=== PATIENT | female | born 1955 | race Caucasian/White ===

== ENCOUNTER 2021-01-08 10:12 | Inpatient (IN) ==
[2021-01-08] MEDS ORDERED: Ondansetron 4 MG/2 ML VIAL IVP PRN (14:10)
[2021-01-08] MEDS ORDERED: Naloxone 0.4 MG/ML INJ IVP PRN (14:10)
[2021-01-08] MEDS ORDERED: Dextrose Gel 15 GM/37.5 ML TUBE PO PRN ×2 (14:17)
[2021-01-08] MEDS ORDERED: D5% in Water 1,000 ML IVC PRN (14:17)
[2021-01-08] MEDS ORDERED: *HR* Dextrose 50 % in Water (Vial) 50 ML VIAL IVP PRN (14:17)
[2021-01-08] MEDS: Insulin LISPRO 300 UNITS/3 ML VIAL SUBQ SCH (15:40)
[2021-01-08 17:47] LABS: LDH,Pleural Fluid > 1200 Units/L (No Ref Range)
[2021-01-08 19:35] LABS: Appearance of Pleural Fl Bloody (Clear)
[2021-01-08 20:58] LABS: Basophils,Pleural Fluid 0 %; Eosinophils,Pleural Fluid 0 %; Lymphocytes,Pleural Fluid 0 %; Monocytes,Pleural Fluid 0 %
[2021-01-08] MEDS ORDERED: Insulin DETEMIR 100 UNIT/ML X5UNITS SUBQ SCH (21:00)
[2021-01-09 02:48] LABS: Hematocrit 32.8 % (35.3-44.9); Hemoglobin 10.3 g/dL (11.5-15.4); Immature Platelets 1.2 % (1.1-6.1); Mean Corpuscular HGB Conc 31.4 g/dL (31.6-35.5); Mean Corpuscular Hemoglobin 28.1 pg (28.0-33.3); Mean Corpuscular Volume 89.6 fL (83.0-100.0); Red Blood Count 3.66 M/mcL (3.82-4.97); Red Cell Distribution Width 14.5 % (11.5-14.5); White Blood Count 2.2 K/mcL (4.3-11.1)
[2021-01-09 03:09] LABS: BUN/Creatinine Ratio 27 (6-26); Blood Urea Nitrogen 21 mg/dL (8-23); Carbon Dioxide 24 mEq/L (23-29); Chloride 105 mEq/L (98-107); Glucose 191 mg/dL (70-105); Osmolality,Calculated 294 (280-300); Potassium 4.2 mEq/L (3.5-5.1); Sodium 138 mEq/L (136-145); eGFR For African Americans > 60 (> 60); eGFR For Non-African Americans > 60 (> 60)
[2021-01-09 07:46] VITALS: BP 152/63
[2021-01-09] MEDS: Insulin LISPRO 300 UNITS/3 ML VIAL SUBQ SCH (08:41)
== END 2021-01-09 11:19 | disposition home or self-care (01) | DRG 187 ==
LOC: SAMDAY 10:12 → 2ANU 10:12 → SUATTDRO 17:37
PROVIDERS: ADMIT Internal Medicine; ATTEND Internal Medicine

== ENCOUNTER 2022-06-09 00:40 | Inpatient (IN) ==
[2022-06-09] MEDS ORDERED: Iopamidol - 370 500 ML MLS IVP ONE (01:49)
[2022-06-09] MEDS ORDERED: 0.9 % Sodium Chloride 1,000 ML IV ONE (01:58)
[2022-06-09] MEDS ORDERED: Acetaminophen 325 MG TABLET PO ONE (02:05)
[2022-06-09 02:50] LABS: Basophils % 0.1 %; Eosinophils % 0.1 %; Mean Corpuscular Volume 87.7 fL (83.0-100.0); Red Cell Distribution Width 14.3 % (11.5-14.5)
[2022-06-09 02:51] LABS: Amorphous Sediment,Urine Moderate per hpf (None-Few); Bacteria,Urine Few per hpf (None-Few); Bilirubin,Urine Negative (Negative); Blood,Urine Small (Negative); Clarity,Urine Turbid (Clear); Color,Urine Yellow (Yellow); Glucose,Urine (UA) Normal (Normal); Hematocrit 27.8 % (35.3-44.9); Hemoglobin 9.2 g/dL (11.5-15.4); Immature Granulocytes % 2.3 % (0-4); Immature Platelets 11.2 % (1.1-6.1); Ketones,Urine Negative (Negative); Leukocyte Esterase,Urine Negative (Negative); Lymphocytes # 0.9 K/mcL (0.6-4.6); Lymphocytes % 10.5 %; Mean Corpuscular HGB Conc 33.1 g/dL (31.6-35.5); Mean Platelet Volume 12.5 fL (9.4-12.4); Monocytes # 0.9 K/mcL (0.0-1.3); Monocytes % 10.9 %; Mucus,Urine Few per lpf (None-Few); Neutrophils # 6.5 K/mcL (1.6-8.9); Nitrite,Urine Negative (Negative); Nucleated Red Blood Cells 0.2 /100 WBC (0); PH,Urine 5.5 pH Units (5.0-8.0); Protein,Urine 70 mg/dL (Neg-Trace); RBC,Urine 0-3 per hpf (0-3); Red Blood Count 3.17 M/mcL (3.82-4.97); Segmented Neutrophils % 76.1 %; Specific Gravity,Urine 1.014 (1.010-1.025); Squamous Epithelial Cell,Urine Few per hpf (None-Few); WBC,Urine 0-3 per hpf (0-3); White Blood Count 8.6 K/mcL (4.3-11.1)
[2022-06-09 03:07] LABS: Platelet Count 64 K/mcL (140-400)
[2022-06-09 03:10] LABS: Alanine Aminotransferase 18 Units/L (7-52); Albumin/Globulin Ratio 0.9 (1.1-2.2); Alkaline Phosphatase 101 Units/L (34-104); Aspartate Amino Transferase 13 Units/L (13-39); BUN/Creatinine Ratio 21 (6-26); Bilirubin,Indirect 0.9 mg/dL (0.0-1.0); Bilirubin,Total 1.9 mg/dL (0.3-1.0); Blood Urea Nitrogen 36 mg/dL (8-23); Calcium 9.5 mg/dL (8.6-10.3); Carbon Dioxide 23 mEq/L (23-29); Chloride 93 mEq/L (98-107); Globulin 3.4 g/dL (2.4-3.5); Glucose 276 mg/dL (70-105); Osmolality,Calculated 278 (280-300); Potassium 4.3 mEq/L (3.5-5.1); Sodium 125 mEq/L (136-145); Total Protein 6.4 g/dL (6.4-8.9); Troponin I < 0.03 ng/mL (< 0.04); eGFR For African Americans 35 (> 60); eGFR For Non-African Americans 29 (> 60)
[2022-06-09] MEDS ORDERED: cephALEXin 500 MG CAPSULE PO ONE (05:08)
[2022-06-09] MEDS ORDERED: Naloxone 0.4 MG/ML INJ IVP PRN (05:17)
[2022-06-09] MEDS ORDERED: Ondansetron 4 MG/2 ML VIAL IVP PRN (05:17)
[2022-06-09] MEDS ORDERED: 0.9 % Sodium Chloride 1,000 ML IVC SCH ×2 (05:30→06:45)
[2022-06-09] MEDS ORDERED: Vancomycin 1,500 MG/265 ML IV.SOLN IVPB ONE (06:00)
[2022-06-09] MEDS ORDERED: *HR* Heparin 5,000 UNIT/ML VIAL SQ SCH (06:00)
[2022-06-09 06:40] LABS: Adenovirus Not Detected (Not Detect); Coronavirus 229E Not Detected (Not Detect); Coronavirus HKU1 Not Detected (Not Detect); Coronavirus NL63 Not Detected (Not Detect); Coronavirus OC43 Not Detected (Not Detect)
[2022-06-09 06:41] LABS: Bordetella Pertussis Not Detected (Not Detect); Chlamydophila pneumoniae Not Detected (Not Detect); Human Metapneumovirus Not Detected (Not Detect); Human Rhinovirus/Enterovirus Not Detected (Not Detect); Influenza A Subtype 2009 H1 Not Detected (Not Detect); Influenza B Not Detected (Not Detect); Mycoplasma pneumoniae Not Detected (Not Detect); Parainfluenza Virus 1 Not Detected (Not Detect); Parainfluenza Virus 2 Not Detected (Not Detect); Parainfluenza Virus 3 Not Detected (Not Detect); Parainfluenza Virus 4 Not Detected (Not Detect); Respiratory Syncytial Virus Not Detected (Not Detect); SARS-CoV-2 DETECTED (Not Detect)
[2022-06-09] MEDS: Piperacillin/Tazobactam 3.375 GM in 0.9 % Sodium Chloride Mini Bag 100 ML IVPB SCH ×2 (07:58→17:16)
[2022-06-09 09:11] LABS: Calcium 9.3 mg/dL (8.6-10.3)
[2022-06-09] MEDS ORDERED: Dextrose Gel 15 GM/37.5 ML TUBE PO PRN ×2 (12:02)
[2022-06-09] MEDS ORDERED: *HR* Dextrose 50 % in Water (Syg) 50 ML SYRINGE IVP PRN (12:02)
[2022-06-09] MEDS ORDERED: D5% in Water 1,000 ML IVC PRN (12:02)
[2022-06-09] MEDS ORDERED: Lactulose Oral Soln 20 GM/30 ML UDC PO SCH (12:15)
[2022-06-09] MEDS: Insulin LISPRO 300 UNITS/3 ML VIAL SUBQ SCH ×2 (12:25→17:16)
[2022-06-09] MEDS: 0.9 % Sodium Chloride 1,000 ML IVC SCH (17:22)
[2022-06-09] MEDS: Acetaminophen 325 MG TABLET PO PRN (17:23)
[2022-06-09] MEDS: Lactulose Oral Soln 20 GM/30 ML UDC PO SCH (21:57)
[2022-06-10] MEDS: Piperacillin/Tazobactam 3.375 GM in 0.9 % Sodium Chloride Mini Bag 100 ML IVPB SCH ×3 (00:16→16:15)
[2022-06-10] MEDS: 0.9 % Sodium Chloride 1,000 ML IVC SCH (04:00)
[2022-06-10] MEDS ORDERED: Vancomycin 1,250 MG/262.5 ML IV.SOLN IVPB SCH (06:00)
[2022-06-10 06:13] LABS: Red Blood Count 2.99 M/mcL (3.82-4.97); Red Cell Distribution Width 14.6 % (11.5-14.5)
[2022-06-10 06:15] LABS: Hematocrit 26.1 % (35.3-44.9); Hemoglobin 8.4 g/dL (11.5-15.4); Immature Platelets 8.2 % (1.1-6.1); Mean Corpuscular HGB Conc 32.2 g/dL (31.6-35.5); Mean Corpuscular Hemoglobin 28.1 pg (28.0-33.3); Mean Corpuscular Volume 87.3 fL (83.0-100.0); Mean Platelet Volume 12.1 fL (9.4-12.4); White Blood Count 8.2 K/mcL (4.3-11.1)
[2022-06-10 07:35] LABS: Calcium 9.1 mg/dL (8.6-10.3); Magnesium 1.5 mg/dL (1.6-2.6); Phosphorous 2.7 mg/dL (2.7-4.5); Potassium 4.1 mEq/L (3.5-5.1)
[2022-06-10] MEDS: Insulin LISPRO 300 UNITS/3 ML VIAL SUBQ SCH ×3 (08:01→17:25)
[2022-06-10] MEDS ORDERED: 0.9 % Sodium Chloride 1,000 ML IVC ONE (08:03)
[2022-06-10] MEDS: Lactulose Oral Soln 20 GM/30 ML UDC PO SCH ×2 (08:04→20:56)
[2022-06-10] MEDS: Torsemide 20 MG TABLET PO SCH (16:16)
[2022-06-10] MEDS: Insulin DETEMIR 100 UNIT/ML X5UNITS SUBQ SCH (21:45)
[2022-06-11] MEDS: Piperacillin/Tazobactam 3.375 GM in 0.9 % Sodium Chloride Mini Bag 100 ML IVPB SCH ×3 (01:03→17:26)
[2022-06-11 06:10] LABS: Hemoglobin 8.1 g/dL (11.5-15.4); Red Cell Distribution Width 14.7 % (11.5-14.5)
[2022-06-11 06:12] LABS: Hematocrit 25.6 % (35.3-44.9); Immature Platelets 5.9 % (1.1-6.1); Mean Corpuscular HGB Conc 31.6 g/dL (31.6-35.5); Mean Corpuscular Hemoglobin 28.1 pg (28.0-33.3); Mean Corpuscular Volume 88.9 fL (83.0-100.0); Mean Platelet Volume 11.9 fL (9.4-12.4); Red Blood Count 2.88 M/mcL (3.82-4.97)
[2022-06-11 06:17] LABS: Calcium 9.2 mg/dL (8.6-10.3); Potassium 3.9 mEq/L (3.5-5.1)
[2022-06-11] MEDS: Torsemide 20 MG TABLET PO SCH ×2 (08:40→17:24)
[2022-06-11] MEDS: Lactulose Oral Soln 20 GM/30 ML UDC PO SCH ×2 (08:41→20:12)
[2022-06-11] MEDS: Insulin LISPRO 300 UNITS/3 ML VIAL SUBQ SCH ×3 (08:41→17:25)
[2022-06-11] MEDS: Insulin DETEMIR 100 UNIT/ML X5UNITS SUBQ SCH ×2 (09:08→20:12)
[2022-06-12] MEDS: Piperacillin/Tazobactam 3.375 GM in 0.9 % Sodium Chloride Mini Bag 100 ML IVPB SCH ×3 (00:22→17:27)
[2022-06-12] MEDS: Acetaminophen 325 MG TABLET PO PRN (04:29)
[2022-06-12] MEDS: Insulin DETEMIR 100 UNIT/ML X5UNITS SUBQ SCH ×2 (08:58→21:48)
[2022-06-12] MEDS: Torsemide 20 MG TABLET PO SCH ×2 (08:58→17:26)
[2022-06-12] MEDS: Lactulose Oral Soln 20 GM/30 ML UDC PO SCH ×2 (08:58→21:48)
[2022-06-12] MEDS: Insulin LISPRO 300 UNITS/3 ML VIAL SUBQ SCH ×3 (08:59→17:26)
[2022-06-12 12:01] LABS: Calcium 9.4 mg/dL (8.6-10.3); Potassium 3.8 mEq/L (3.5-5.1)
[2022-06-13] MEDS: Piperacillin/Tazobactam 3.375 GM in 0.9 % Sodium Chloride Mini Bag 100 ML IVPB SCH ×2 (00:47→08:15)
[2022-06-13 07:07] VITALS: TEMP 97.6
[2022-06-13] MEDS: Insulin LISPRO 300 UNITS/3 ML VIAL SUBQ SCH (08:17)
[2022-06-13] MEDS: Torsemide 20 MG TABLET PO SCH (08:17)
[2022-06-13] MEDS: Lactulose Oral Soln 20 GM/30 ML UDC PO SCH (08:17)
[2022-06-13] MEDS: Insulin DETEMIR 100 UNIT/ML X5UNITS SUBQ SCH (08:17)
[2022-06-13 10:40] VITALS: BP 144/70; PULSE 59; O2SAT 94
== END 2022-06-13 11:40 | disposition other institution (70) | DRG 871 ==
LOC: EMEROOARM 00:40 → 3ANU 00:40 → SUATTDRO 05:26 → 3ANU 06:10
PROVIDERS: ADMIT Student in an Organized Health Care Education/Training Program; ATTEND Internal Medicine

== ENCOUNTER 2022-06-19 16:57 | Inpatient (IN) ==
[2022-06-19] MEDS ORDERED: Ondansetron ODT 4 MG TAB.RAPDIS SL PRN (21:41)
[2022-06-19] MEDS ORDERED: Naloxone 0.4 MG/ML INJ IVP PRN (21:41)
[2022-06-19] MEDS ORDERED: D5% in Water 1,000 ML IVC PRN (21:45)
[2022-06-19] MEDS ORDERED: Dextrose Gel 15 GM/37.5 ML TUBE PO PRN ×2 (21:45)
[2022-06-19] MEDS ORDERED: *HR* Dextrose 50 % in Water (Syg) 50 ML SYRINGE IVP PRN (21:45)
[2022-06-19] MEDS: Insulin LISPRO 300 UNITS/3 ML VIAL SUBQ SCH (22:55)
[2022-06-19] MEDS: Ampicillin 2,000 MG in 0.9 % Sodium Chloride Mini Bag 100 ML IVPB SCH (23:48)
[2022-06-20 01:06] LABS: Bilirubin,Urine Negative (Negative); Blood,Urine Large (Negative); Budding Yeast,Urine Few per hpf (None Seen); Clarity,Urine Clear (Clear); Color,Urine Light-Yellow (Yellow); Glucose,Urine (UA) 70 mg/dL (Normal); Hyaline Casts,Urine Few per lpf (None Seen); Ketones,Urine Negative (Negative); Leukocyte Esterase,Urine Negative (Negative); Mucus,Urine Few per lpf (None-Few); Nitrite,Urine Negative (Negative); PH,Urine 6.5 pH Units (5.0-8.0); Protein,Urine 50 mg/dL (Neg-Trace); RBC,Urine TNTC per hpf (0-3); Specific Gravity,Urine 1.009 (1.010-1.025); Urobilinogen,Urine Normal (Normal)
[2022-06-20 04:53] LABS: INR 1.4; Prothrombin Time 16.1 Seconds (9.4-12.1)
[2022-06-20 05:06] LABS: Hemoglobin 7.5 g/dL (11.5-15.4); Lymphocytes % 9.3 %; Monocytes % 1.5 %; Segmented Neutrophils % 87.7 %
[2022-06-20 05:08] LABS: Basophils % 0.2 %; Immature Granulocytes % 1.3 % (0-4); Immature Platelets 14.1 % (1.1-6.1); Lymphocytes # 0.5 K/mcL (0.6-4.6); Mean Corpuscular HGB Conc 31.3 g/dL (31.6-35.5); Mean Corpuscular Hemoglobin 28.2 pg (28.0-33.3); Mean Corpuscular Volume 90.2 fL (83.0-100.0); Monocytes # 0.1 K/mcL (0.0-1.3); Red Blood Count 2.66 M/mcL (3.82-4.97); Red Cell Distribution Width 16.5 % (11.5-14.5); White Blood Count 5.3 K/mcL (4.3-11.1)
[2022-06-20 05:12] LABS: Neutrophils # 4.7 K/mcL (1.6-8.9)
[2022-06-20 05:13] LABS: Platelet Count 12 K/mcL (140-400)
[2022-06-20] MEDS: Ampicillin 2,000 MG in 0.9 % Sodium Chloride Mini Bag 100 ML IVPB SCH (05:36)
[2022-06-20 06:04] LABS: Potassium 4.2 mEq/L (3.5-5.1)
[2022-06-20 06:33] LABS: Albumin 2.5 g/dL (3.5-5.7); Albumin/Globulin Ratio 0.6 (1.1-2.2); Bilirubin,Total 1.2 mg/dL (0.3-1.0); Calcium 9.8 mg/dL (8.6-10.3); Globulin 4.1 g/dL (2.4-3.5); Total Protein 6.6 g/dL (6.4-8.9)
[2022-06-20] MEDS ORDERED: Insulin LISPRO 300 UNITS/3 ML VIAL SUBQ SCH (07:30)
[2022-06-20] MEDS: Dexamethasone Sodium Phos/PF 10 MG/ML VIAL IVP SCH (09:31)
[2022-06-20] MEDS: niCARdipine 20 MG/200 ML MLS IVC SCH ×5 (09:31→20:03)
[2022-06-20] MEDS ORDERED: levoFLOXacin 750 MG/150 ML 750 MG/150 ML BAG IVPB SCH (10:00)
[2022-06-20 10:55] LABS: % Iron Saturation 15 % (15-50); Iron 60 mcg/dL (50-170); Transferrin 282 mg/dL (203-362)
[2022-06-20] MEDS ORDERED: Fluticasone Propionate Nasal 50 MCG/SPRAY BOTTLE NS PRN (10:56)
[2022-06-20] MEDS ORDERED: Furosemide 40 MG/4 ML VIAL IVP ONE ×2 (10:56)
[2022-06-20 11:13] LABS: Ferritin 73 ng/mL (10-120)
[2022-06-20] MEDS ORDERED: amLODIPine 5 MG TABLET PO SCH (11:30)
[2022-06-20] MEDS ORDERED: *HR* Midazolam HCl 2 MG/2 ML VIAL IVP ONE (11:45)
[2022-06-20] MEDS ORDERED: *HR* FentaNYL (PF) 100 MCG/2 ML VIAL IVP ONE (11:45)
[2022-06-20 11:56] LABS: Folate > 22.3 ng/mL (3.0-16.0); Vitamin B12 1390 pg/mL (250-1100)
[2022-06-20] MEDS: Insulin LISPRO 300 UNITS/3 ML VIAL SUBQ SCH ×3 (13:03→20:29)
[2022-06-20 13:59] LABS: Hepatitis B Surface Antigen Nonreactive (Nonreactive)
[2022-06-20 14:29] LABS: Hepatitis B Core IgM Nonreactive (Nonreactive)
[2022-06-20 14:31] LABS: Hepatitis C Virus Antibody Nonreactive (Nonreactive)
[2022-06-20 14:34] LABS: Hepatitis A Antibody IgM Nonreactive (Nonreactive)
[2022-06-20 14:35] LABS: HIV-1&2 Antibody & p24 Ag Nonreactive (Nonreactive)
[2022-06-20] MEDS: *HR* LORazepam 2 MG/ML VIAL IVP PRN (15:23)
[2022-06-20] MEDS: Insulin DETEMIR 100 UNIT/ML X5UNITS SUBQ SCH (20:29)
[2022-06-21] MEDS: niCARdipine 20 MG/200 ML MLS IVC SCH ×11 (00:27→22:38)
[2022-06-21 05:35] LABS: Basophils % 0.1 %
[2022-06-21 05:36] LABS: Hematocrit 25.5 % (35.3-44.9); Hemoglobin 7.7 g/dL (11.5-15.4); Lymphocytes # 0.8 K/mcL (0.6-4.6); Lymphocytes % 6.2 %; Mean Corpuscular HGB Conc 30.2 g/dL (31.6-35.5); Mean Corpuscular Volume 92.7 fL (83.0-100.0); Monocytes # 0.3 K/mcL (0.0-1.3); Monocytes % 2.3 %; Red Blood Count 2.75 M/mcL (3.82-4.97); Red Cell Distribution Width 17.2 % (11.5-14.5); Segmented Neutrophils % 90.4 %; White Blood Count 13.3 K/mcL (4.3-11.1)
[2022-06-21 05:37] LABS: Platelet Count 70 K/mcL (140-400)
[2022-06-21 05:55] LABS: Potassium 4.6 mEq/L (3.5-5.1)
[2022-06-21] MEDS: Insulin DETEMIR 100 UNIT/ML X5UNITS SUBQ SCH ×2 (07:45→20:05)
[2022-06-21] MEDS: Insulin LISPRO 300 UNITS/3 ML VIAL SUBQ SCH ×4 (07:45→20:02)
[2022-06-21] MEDS: Furosemide 40 MG/4 ML VIAL IVP SCH (07:46)
[2022-06-21] MEDS: Lactulose Oral Soln 20 GM/30 ML UDC PO SCH (07:46)
[2022-06-21] MEDS: Dexamethasone Sodium Phos/PF 10 MG/ML VIAL IVP SCH (07:46)
[2022-06-21] MEDS: amLODIPine 5 MG TABLET PO SCH (07:47)
[2022-06-21] MEDS ORDERED: Acetaminophen 325 MG TABLET PO ONE (09:58)
[2022-06-21] MEDS ORDERED: Albumin 25% 25gram/100mL 25 GM/100 ML IV.SOLN IVPB ONE (12:10)
[2022-06-21] MEDS ORDERED: Furosemide 40 MG/4 ML VIAL IVP ONE (12:11)
[2022-06-21] MEDS: Ipratropium/Albuterol Neb 3 ML IH SCH ×2 (15:49→20:21)
[2022-06-21] MEDS: Piperacillin/Tazobactam 3.375 GM in 0.9 % Sodium Chloride Mini Bag 100 ML IVPB SCH (16:32)
[2022-06-22] MEDS: niCARdipine 20 MG/200 ML MLS IVC SCH ×5 (00:34→18:15)
[2022-06-22] MEDS: Piperacillin/Tazobactam 3.375 GM in 0.9 % Sodium Chloride Mini Bag 100 ML IVPB SCH ×3 (00:35→16:37)
[2022-06-22] MEDS: Ipratropium/Albuterol Neb 3 ML IH SCH ×4 (04:03→22:00)
[2022-06-22 04:55] LABS: Basophils % 0.1 %; Monocytes % 2.4 %
[2022-06-22 04:57] LABS: Hematocrit 24.4 % (35.3-44.9); Hemoglobin 7.3 g/dL (11.5-15.4); Immature Granulocytes % 0.9 % (0-4); Lymphocytes # 0.9 K/mcL (0.6-4.6); Lymphocytes % 7.5 %; Mean Corpuscular HGB Conc 29.9 g/dL (31.6-35.5); Mean Corpuscular Volume 93.5 fL (83.0-100.0); Mean Platelet Volume 11.9 fL (9.4-12.4); Monocytes # 0.3 K/mcL (0.0-1.3); Neutrophils # 10.2 K/mcL (1.6-8.9); Platelet Count 50 K/mcL (140-400); Red Blood Count 2.61 M/mcL (3.82-4.97); Red Cell Distribution Width 17.8 % (11.5-14.5); Segmented Neutrophils % 89.1 %; White Blood Count 11.4 K/mcL (4.3-11.1)
[2022-06-22 05:15] LABS: Albumin/Globulin Ratio 0.7 (1.1-2.2); Bilirubin,Total 1.2 mg/dL (0.3-1.0); Calcium 9.8 mg/dL (8.6-10.3); Globulin 4.1 g/dL (2.4-3.5); Potassium 4.8 mEq/L (3.5-5.1); Total Protein 7.1 g/dL (6.4-8.9)
[2022-06-22] MEDS: amLODIPine 5 MG TABLET PO SCH (09:13)
[2022-06-22] MEDS: Dexamethasone Sodium Phos/PF 10 MG/ML VIAL IVP SCH (09:14)
[2022-06-22] MEDS: Furosemide 40 MG/4 ML VIAL IVP SCH (09:14)
[2022-06-22] MEDS: Insulin DETEMIR 100 UNIT/ML X5UNITS SUBQ SCH ×2 (09:15→20:39)
[2022-06-22] MEDS: Insulin LISPRO 300 UNITS/3 ML VIAL SUBQ SCH ×4 (09:16→20:39)
[2022-06-22] MEDS: Lactulose Oral Soln 20 GM/30 ML UDC PO SCH (09:17)
[2022-06-22 10:25] LABS: ANA IgG by ELISA NONE DETECTED (None Detected)
[2022-06-22 12:31] LABS: Protein/Creatinine Ratio,Urine 1.14 mg/mg (0.00-0.20); Sodium, Urine 32.3 mEq/L
[2022-06-22] MEDS: Albumin 25% 25gram/100mL 25 GM/100 ML IV.SOLN IVPB SCH (16:37)
[2022-06-22] MEDS: hydrALAZINE 25 MG TABLET PO SCH (17:47)
[2022-06-22] MEDS: *HR* LORazepam 2 MG/ML VIAL IVP PRN (23:01)
[2022-06-22 23:24] LABS: % Iron Saturation 12 % (15-50); Iron 46 mcg/dL (50-170); Transferrin 272 mg/dL (203-362)
[2022-06-22 23:43] LABS: Ferritin 66 ng/mL (10-120)
[2022-06-23] MEDS: Albumin 25% 25gram/100mL 25 GM/100 ML IV.SOLN IVPB SCH ×2 (00:17→07:43)
[2022-06-23] MEDS: Piperacillin/Tazobactam 3.375 GM in 0.9 % Sodium Chloride Mini Bag 100 ML IVPB SCH ×4 (00:17→18:57)
[2022-06-23] MEDS: hydrALAZINE 25 MG TABLET PO SCH ×2 (00:17→09:11)
[2022-06-23] MEDS: niCARdipine 20 MG/200 ML MLS IVC SCH (03:02)
[2022-06-23] MEDS: Ipratropium/Albuterol Neb 3 ML IH SCH ×2 (04:00→10:21)
[2022-06-23 04:53] LABS: Basophils % 0.1 %; Hemoglobin 7.8 g/dL (11.5-15.4); Mean Platelet Volume 12.9 fL (9.4-12.4)
[2022-06-23 04:56] LABS: Immature Granulocytes % 1.3 % (0-4); Immature Platelets 12.9 % (1.1-6.1); Lymphocytes # 0.9 K/mcL (0.6-4.6); Lymphocytes % 5.7 %; Mean Corpuscular Hemoglobin 27.9 pg (28.0-33.3); Mean Corpuscular Volume 92.9 fL (83.0-100.0); Monocytes # 0.4 K/mcL (0.0-1.3); Monocytes % 2.6 %; Red Cell Distribution Width 17.8 % (11.5-14.5); Segmented Neutrophils % 90.3 %; White Blood Count 15.2 K/mcL (4.3-11.1)
[2022-06-23 05:05] LABS: ABG Base Excess -6 mEq/L (-2 to 3); ABG HCO3 20 mEq/L (21-27); ABG Oxygen Saturation 88 % (95-98); ABG PCO2 38 mmHg (35-45); ABG PH 7.32 pH Units (7.32-7.45); ABG PO2 58 mmHg (85-104); ABG TCO2 21 mEq/L (20-26)
[2022-06-23 05:07] LABS: Neutrophils # 13.7 K/mcL (1.6-8.9); Platelet Count 33 K/mcL (140-400)
[2022-06-23 05:14] LABS: Albumin 3.8 g/dL (3.5-5.7); Bilirubin,Total 1.7 mg/dL (0.3-1.0); Calcium 10.4 mg/dL (8.6-10.3); Globulin 3.9 g/dL (2.4-3.5); Phosphorous 6.6 mg/dL (2.7-4.5); Potassium 4.8 mEq/L (3.5-5.1); Total Protein 7.7 g/dL (6.4-8.9); Uric Acid 11.1 mg/dL (2.3-7.6)
[2022-06-23 05:23] LABS: Thyroid Stimulating Hormone 2.743 mcIU/mL (0.340-5.600)
[2022-06-23] MEDS: Dexamethasone Sodium Phos/PF 10 MG/ML VIAL IVP SCH (07:43)
[2022-06-23] MEDS: Insulin LISPRO 300 UNITS/3 ML VIAL SUBQ SCH ×4 (07:55→21:48)
[2022-06-23 08:04] LABS: ABG Base Excess -7 mEq/L (-2 to 3); ABG HCO3 20 mEq/L (21-27); ABG Oxygen Saturation 92 % (95-98); ABG PCO2 44 mmHg (35-45); ABG PH 7.27 pH Units (7.32-7.45); ABG PO2 74 mmHg (85-104); ABG TCO2 21 mEq/L (20-26); Blood Gas VT 450 cc
[2022-06-23] MEDS: Insulin DETEMIR 100 UNIT/ML X5UNITS SUBQ SCH ×2 (08:11→21:26)
[2022-06-23] MEDS: amLODIPine 5 MG TABLET PO SCH (09:11)
[2022-06-23] MEDS: Lactulose Oral Soln 20 GM/30 ML UDC PO SCH ×4 (09:11→21:22)
[2022-06-23 09:21] LABS: INR 1.7; Prothrombin Time 19.3 Seconds (9.4-12.1)
[2022-06-23] MEDS ORDERED: *HR* Atropine Sulfate 1 MG/10 ML SYRINGE ONE (09:24)
[2022-06-23] MEDS ORDERED: Artificial Tears SOLN 15 ML BOTTLE BOTH EYES PRN (09:33)
[2022-06-23] MEDS ORDERED: FentaNYL (PF) 1,000 MCG/100 ML IV.SOLN ONE (09:34)
[2022-06-23] MEDS: FentaNYL (PF) 1,000 MCG/100 ML IV.SOLN IVC SCH ×3 (09:52→23:30)
[2022-06-23] MEDS: Pantoprazole 40 MG VIAL IVP SCH ×2 (09:57→17:20)
[2022-06-23] MEDS: Norepinephrine 4 MG/254 ML IV.SOLN IVC SCH ×2 (10:15→17:36)
[2022-06-23] MEDS: Cisatracurium 200 MG in 0.9 % Sodium Chloride 80 ML IVC SCH ×2 (10:54→16:35)
[2022-06-23] MEDS: Artificial Tears SOLN 15 ML BOTTLE BOTH EYES SCH ×3 (11:51→21:21)
[2022-06-23] MEDS ORDERED: Vancomycin 1,750 MG/517.5 ML IV.SOLN IVPB ONE (13:00)
[2022-06-23 13:34] LABS: ABG Base Excess -6 mEq/L (-2 to 3); ABG HCO3 19 mEq/L (21-27); ABG Oxygen Saturation 100 % (95-98); ABG PCO2 33 mmHg (35-45); ABG PH 7.37 pH Units (7.32-7.45); ABG PO2 370 mmHg (85-104); ABG TCO2 20 mEq/L (20-26); Blood Gas VT 400 cc
[2022-06-23 13:47] LABS: Urine Collection Volume NOT PROVIDED mL
[2022-06-23] MEDS: Furosemide 40 MG/4 ML VIAL IVP SCH ×2 (14:21→21:26)
[2022-06-23] MEDS ORDERED: *HR* Midazolam HCl 5 MG/5 ML VIAL IVP ONE (15:23)
[2022-06-23] MEDS ORDERED: *HR* Propofol 200 MG/20 ML VIAL IVP ONE (15:23)
[2022-06-23] MEDS: Ipratropium 1 PUFF INHALER IH SCH ×2 (15:31→23:00)
[2022-06-23 15:44] LABS: Complement C3 92 mg/dL (87-200)
[2022-06-23] MEDS: Chlorhexidine Rinse 15 ML MOUTHWASH MM SCH (21:21)
[2022-06-23 22:03] LABS: ABG Base Excess -6 mEq/L (-2 to 3); ABG HCO3 20 mEq/L (21-27); ABG Oxygen Saturation 100 % (95-98); ABG PCO2 39 mmHg (35-45); ABG PH 7.32 pH Units (7.32-7.45); ABG PO2 199 mmHg (85-104); ABG TCO2 21 mEq/L (20-26); Blood Gas Modality ASSIST CONTROL; Blood Gas VT 391 cc
[2022-06-23 22:26] LABS: Basophils % 0.1 %; Nucleated Red Blood Cells 0.2 /100 WBC (0); White Blood Count 16.9 K/mcL (4.3-11.1)
[2022-06-23 22:28] LABS: Hematocrit 22.8 % (35.3-44.9); Immature Granulocytes % 1.4 % (0-4); Lymphocytes # 0.5 K/mcL (0.6-4.6); Lymphocytes % 3.1 %; Mean Corpuscular HGB Conc 30.7 g/dL (31.6-35.5); Mean Corpuscular Hemoglobin 28.5 pg (28.0-33.3); Mean Corpuscular Volume 92.7 fL (83.0-100.0); Monocytes # 0.3 K/mcL (0.0-1.3); Monocytes % 1.9 %; Neutrophils # 15.8 K/mcL (1.6-8.9); Red Blood Count 2.46 M/mcL (3.82-4.97); Red Cell Distribution Width 17.5 % (11.5-14.5); Segmented Neutrophils % 93.5 %
[2022-06-23 22:34] LABS: Platelet Count 44 K/mcL (140-400)
[2022-06-24] MEDS ORDERED: 0.9 % Sodium Chloride 250 ML ONE ×2 (00:07→10:14)
[2022-06-24] MEDS: Norepinephrine 4 MG/254 ML IV.SOLN IVC SCH ×2 (02:30→20:26)
[2022-06-24 02:31] LABS: Alpha 2 Globulin (PEP) 0.86 g/dL (0.48-1.05); Beta Globulin (PEP) 0.98 g/dL (0.48-1.10)
[2022-06-24] MEDS: Cisatracurium 200 MG in 0.9 % Sodium Chloride 80 ML IVC SCH ×2 (04:00→12:30)
[2022-06-24] MEDS: Ipratropium 1 PUFF INHALER IH SCH ×4 (04:15→22:59)
[2022-06-24 04:23] LABS: ABG Base Excess -6 mEq/L (-2 to 3); ABG HCO3 19 mEq/L (21-27); ABG Oxygen Saturation 98 % (95-98); ABG PCO2 36 mmHg (35-45); ABG PH 7.34 pH Units (7.32-7.45); ABG PO2 118 mmHg (85-104); ABG TCO2 20 mEq/L (20-26); Blood Gas Modality ASSIST CONTROL; Blood Gas VT 400 cc
[2022-06-24] MEDS: niCARdipine 20 MG/200 ML MLS IVC SCH ×2 (04:25→04:26)
[2022-06-24 04:56] LABS: Basophils % 0.1 %; Nucleated Red Blood Cells 0.3 /100 WBC (0); Red Blood Count 2.81 M/mcL (3.82-4.97)
[2022-06-24 04:58] LABS: Hematocrit 25.8 % (35.3-44.9); Immature Granulocytes % 1.5 % (0-4); Immature Platelets 10.9 % (1.1-6.1); Lymphocytes # 0.5 K/mcL (0.6-4.6); Lymphocytes % 3.4 %; Mean Corpuscular Hemoglobin 28.5 pg (28.0-33.3); Mean Corpuscular Volume 91.8 fL (83.0-100.0); Mean Platelet Volume 12.9 fL (9.4-12.4); Monocytes # 0.3 K/mcL (0.0-1.3); Monocytes % 1.8 %; Red Cell Distribution Width 16.6 % (11.5-14.5); Segmented Neutrophils % 93.2 %
[2022-06-24 05:00] LABS: Platelet Count 40 K/mcL (140-400)
[2022-06-24 05:16] LABS: Albumin 3.4 g/dL (3.5-5.7); Albumin/Globulin Ratio 1.1 (1.1-2.2); Bilirubin,Total 1.6 mg/dL (0.3-1.0); Calcium 10.2 mg/dL (8.6-10.3); Globulin 3.2 g/dL (2.4-3.5); Potassium 4.7 mEq/L (3.5-5.1); Total Protein 6.6 g/dL (6.4-8.9)
[2022-06-24] MEDS: Artificial Tears SOLN 15 ML BOTTLE BOTH EYES SCH ×7 (05:27→23:13)
[2022-06-24] MEDS: Midazolam HCl 50 MG/50 ML IV.SOLN IVC SCH ×2 (05:27→14:07)
[2022-06-24] MEDS: Pantoprazole 40 MG VIAL IVP SCH ×2 (05:27→17:41)
[2022-06-24] MEDS: FentaNYL (PF) 1,000 MCG/100 ML IV.SOLN IVC SCH ×3 (06:29→21:20)
[2022-06-24] MEDS: Furosemide 40 MG/4 ML VIAL IVP SCH ×2 (08:18→17:37)
[2022-06-24] MEDS: Dexamethasone Sodium Phos/PF 10 MG/ML VIAL IVP SCH (08:18)
[2022-06-24] MEDS: Lactulose Oral Soln 20 GM/30 ML UDC PO SCH (08:18)
[2022-06-24] MEDS: Chlorhexidine Rinse 15 ML MOUTHWASH MM SCH ×2 (08:18→19:21)
[2022-06-24] MEDS: Insulin DETEMIR 100 UNIT/ML X5UNITS SUBQ SCH ×2 (08:19→19:24)
[2022-06-24] MEDS: Piperacillin/Tazobactam 3.375 GM in 0.9 % Sodium Chloride Mini Bag 100 ML IVPB SCH ×2 (08:19→19:20)
[2022-06-24] MEDS: Insulin LISPRO 300 UNITS/3 ML VIAL SUBQ SCH ×5 (08:44→23:13)
[2022-06-24] MEDS ORDERED: *HR* Heparin 10,000 UNIT/10 ML VIAL IV PRN (09:36)
[2022-06-24] MEDS ORDERED: 0.9 % Sodium Chloride 250 ML IVC PRN (09:36)
[2022-06-24] MEDS ORDERED: 0.9 % Sodium Chloride 2,000 ML PRIME SCH (09:45)
[2022-06-24 10:57] LABS: IFE Reflexed NOT DONE
[2022-06-24] MEDS ORDERED: Heparin 1,000 UNITS/500 mL 500 ML ONE (13:28)
[2022-06-24] MEDS ORDERED: *HR* Heparin 5,000 UNIT/ML VIAL ONE (13:41)
[2022-06-24 15:39] LABS: Hepatitis B Surface Antigen Nonreactive (Nonreactive)
[2022-06-24 15:51] LABS: Bacteria,Urine Few per hpf (None-Few); Bilirubin,Urine Negative (Negative); Blood,Urine Large (Negative); Budding Yeast,Urine Moderate per hpf (None Seen); Clarity,Urine Turbid (Clear); Color,Urine Yellow (Yellow); Glucose,Urine (UA) Normal (Normal); Ketones,Urine Negative (Negative); Leukocyte Esterase,Urine Moderate (Negative); Mucus,Urine Few per lpf (None-Few); Nitrite,Urine Negative (Negative); PH,Urine 5.5 pH Units (5.0-8.0); Protein,Urine Trace mg/dL (Neg-Trace); RBC,Urine TNTC per hpf (0-3); Specific Gravity,Urine 1.019 (1.010-1.025); Squamous Epithelial Cell,Urine Few per hpf (None-Few); Urobilinogen,Urine Normal (Normal); WBC,Urine 15-30 per hpf (0-3)
[2022-06-25] MEDS: Ipratropium 1 PUFF INHALER IH SCH ×4 (03:24→22:32)
[2022-06-25 03:38] LABS: ABG Base Excess -2 mEq/L (-2 to 3); ABG HCO3 22 mEq/L (21-27); ABG Oxygen Saturation 99 % (95-98); ABG PCO2 31 mmHg (35-45); ABG PH 7.46 pH Units (7.32-7.45); ABG PO2 143 mmHg (85-104); ABG TCO2 23 mEq/L (20-26); Blood Gas Modality ASSIST CONTROL; Blood Gas VT 400 cc
[2022-06-25 04:15] LABS: Hematocrit 20.5 % (35.3-44.9); Hemoglobin 6.6 g/dL (11.5-15.4); Immature Granulocytes % 1.8 % (0-4); Immature Platelets 8.3 % (1.1-6.1); Lymphocytes # 0.3 K/mcL (0.6-4.6); Lymphocytes % 7.9 %; Mean Corpuscular HGB Conc 32.2 g/dL (31.6-35.5); Mean Corpuscular Hemoglobin 28.3 pg (28.0-33.3); Mean Platelet Volume 11.7 fL (9.4-12.4); Monocytes # 0.2 K/mcL (0.0-1.3); Monocytes % 5.6 %; Neutrophils # 2.9 K/mcL (1.6-8.9); Nucleated Red Blood Cells 5.3 /100 WBC (0); Red Blood Count 2.33 M/mcL (3.82-4.97); Segmented Neutrophils % 84.7 %; White Blood Count 3.4 K/mcL (4.3-11.1)
[2022-06-25 04:16] LABS: Platelet Count 45 K/mcL (140-400)
[2022-06-25] MEDS: Artificial Tears SOLN 15 ML BOTTLE BOTH EYES SCH ×6 (04:17→23:24)
[2022-06-25] MEDS: Midazolam HCl 50 MG/50 ML IV.SOLN IVC SCH ×2 (04:32→21:29)
[2022-06-25 04:35] LABS: Calcium 9.4 mg/dL (8.6-10.3); Magnesium 2.2 mg/dL (1.6-2.6); Phosphorous 5.6 mg/dL (2.7-4.5); Potassium 4.3 mEq/L (3.5-5.1)
[2022-06-25] MEDS: FentaNYL (PF) 1,000 MCG/100 ML IV.SOLN IVC SCH ×3 (04:45→19:23)
[2022-06-25 04:59] LABS: Hemoglobin 6.6 g/dL (11.5-15.4)
[2022-06-25 05:01] LABS: Basophils % 0.3 %; Hematocrit 20.7 % (35.3-44.9); Immature Granulocytes % 1.4 % (0-4); Immature Platelets 7.7 % (1.1-6.1); Lymphocytes # 0.3 K/mcL (0.6-4.6); Lymphocytes % 7.1 %; Mean Corpuscular HGB Conc 31.9 g/dL (31.6-35.5); Mean Corpuscular Hemoglobin 28.2 pg (28.0-33.3); Mean Corpuscular Volume 88.5 fL (83.0-100.0); Mean Platelet Volume 12.2 fL (9.4-12.4); Monocytes # 0.2 K/mcL (0.0-1.3); Monocytes % 5.7 %; Nucleated Red Blood Cells 5.1 /100 WBC (0); Red Blood Count 2.34 M/mcL (3.82-4.97); Red Cell Distribution Width 17.1 % (11.5-14.5); Segmented Neutrophils % 85.5 %; White Blood Count 3.5 K/mcL (4.3-11.1)
[2022-06-25 05:06] LABS: Platelet Count 47 K/mcL (140-400)
[2022-06-25] MEDS ORDERED: 0.9 % Sodium Chloride 250 ML ONE (05:34)
[2022-06-25] MEDS: Pantoprazole 40 MG VIAL IVP SCH ×2 (06:07→18:21)
[2022-06-25] MEDS: Insulin LISPRO 300 UNITS/3 ML VIAL SUBQ SCH ×5 (06:18→23:24)
[2022-06-25] MEDS: Norepinephrine 4 MG/254 ML IV.SOLN IVC SCH (06:42)
[2022-06-25] MEDS ORDERED: 0.9 % Sodium Chloride 250 ML IVC PRN (07:38)
[2022-06-25] MEDS ORDERED: *HR* Heparin 10,000 UNIT/10 ML VIAL IV PRN (07:38)
[2022-06-25] MEDS: Piperacillin/Tazobactam 3.375 GM in 0.9 % Sodium Chloride Mini Bag 100 ML IVPB SCH ×2 (07:44→19:22)
[2022-06-25] MEDS ORDERED: 0.9 % Sodium Chloride 2,000 ML PRIME SCH (07:45)
[2022-06-25] MEDS: Chlorhexidine Rinse 15 ML MOUTHWASH MM SCH ×2 (07:46→19:22)
[2022-06-25] MEDS: Lactulose Oral Soln 20 GM/30 ML UDC PO SCH (07:46)
[2022-06-25] MEDS: Dexamethasone Sodium Phos/PF 10 MG/ML VIAL IVP SCH (07:46)
[2022-06-25] MEDS: Insulin DETEMIR 100 UNIT/ML X5UNITS SUBQ SCH ×2 (07:49→19:23)
[2022-06-25 11:49] LABS: Hemoglobin 7.4 g/dL (11.5-15.4); Immature Granulocytes % 1.2 % (0-4); Lymphocytes # 0.2 K/mcL (0.6-4.6); Lymphocytes % 7.2 %; Mean Corpuscular HGB Conc 32.2 g/dL (31.6-35.5); Mean Corpuscular Hemoglobin 28.8 pg (28.0-33.3); Mean Corpuscular Volume 89.5 fL (83.0-100.0); Monocytes # 0.2 K/mcL (0.0-1.3); Neutrophils # 2.8 K/mcL (1.6-8.9); Nucleated Red Blood Cells 5.7 /100 WBC (0); Platelet Count 49 K/mcL (140-400); Red Blood Count 2.57 M/mcL (3.82-4.97); Red Cell Distribution Width 17.1 % (11.5-14.5); Segmented Neutrophils % 85.6 %; White Blood Count 3.3 K/mcL (4.3-11.1)
[2022-06-26] MEDS: FentaNYL (PF) 1,000 MCG/100 ML IV.SOLN IVC SCH ×3 (03:12→23:27)
[2022-06-26] MEDS: Ipratropium 1 PUFF INHALER IH SCH ×4 (03:53→22:51)
[2022-06-26 04:00] LABS: Hematocrit 24.1 % (35.3-44.9); Hemoglobin 7.8 g/dL (11.5-15.4); Mean Corpuscular HGB Conc 32.4 g/dL (31.6-35.5)
[2022-06-26 04:03] LABS: Basophils % 0.3 %; Immature Granulocytes % 2.8 % (0-4); Immature Platelets 7.3 % (1.1-6.1); Lymphocytes # 0.2 K/mcL (0.6-4.6); Mean Corpuscular Hemoglobin 28.7 pg (28.0-33.3); Mean Corpuscular Volume 88.6 fL (83.0-100.0); Monocytes # 0.3 K/mcL (0.0-1.3); Monocytes % 9.5 %; Nucleated Red Blood Cells 6.7 /100 WBC (0); Red Blood Count 2.72 M/mcL (3.82-4.97); Red Cell Distribution Width 17.4 % (11.5-14.5); Segmented Neutrophils % 82.4 %; White Blood Count 3.6 K/mcL (4.3-11.1)
[2022-06-26 04:08] LABS: ABG Base Excess 0 mEq/L (-2 to 3); ABG HCO3 22 mEq/L (21-27); ABG Oxygen Saturation 98 % (95-98); ABG PCO2 28 mmHg (35-45); ABG PH 7.51 pH Units (7.32-7.45); ABG PO2 89 mmHg (85-104); ABG TCO2 23 mEq/L (20-26); Blood Gas Modality ASSIST CONTROL; Blood Gas VT 400 cc
[2022-06-26] MEDS: Insulin LISPRO 300 UNITS/3 ML VIAL SUBQ SCH ×5 (04:10→20:07)
[2022-06-26] MEDS: Artificial Tears SOLN 15 ML BOTTLE BOTH EYES SCH ×6 (04:10→23:42)
[2022-06-26 04:15] LABS: Platelet Count 56 K/mcL (140-400)
[2022-06-26 04:18] LABS: Albumin 2.9 g/dL (3.5-5.7); Bilirubin,Direct 0.7 mg/dL (0.0-0.2); Bilirubin,Indirect 0.7 mg/dL (0.0-1.0); Bilirubin,Total 1.4 mg/dL (0.3-1.0); Calcium 9.4 mg/dL (8.6-10.3); Globulin 2.9 g/dL (2.4-3.5); Magnesium 2.3 mg/dL (1.6-2.6); Phosphorous 4.1 mg/dL (2.7-4.5); Potassium 4.2 mEq/L (3.5-5.1); Total Protein 5.8 g/dL (6.4-8.9)
[2022-06-26 05:24] LABS: Anisocytosis 1+ (Not Present); Platelet Estimate Decreased (Normal); Poikilocytosis 1+ (Not Present); Polychromasia 1+ (Not Present); Target Cells 1+ (Not Present)
[2022-06-26] MEDS: Pantoprazole 40 MG VIAL IVP SCH ×2 (06:50→17:23)
[2022-06-26] MEDS: Piperacillin/Tazobactam 3.375 GM in 0.9 % Sodium Chloride Mini Bag 100 ML IVPB SCH ×2 (08:35→19:30)
[2022-06-26] MEDS: Chlorhexidine Rinse 15 ML MOUTHWASH MM SCH ×2 (08:35→19:29)
[2022-06-26] MEDS: Lactulose Oral Soln 20 GM/30 ML UDC PO SCH (08:35)
[2022-06-26] MEDS: Dexamethasone Sodium Phos/PF 10 MG/ML VIAL IVP SCH (08:36)
[2022-06-26] MEDS: Insulin DETEMIR 100 UNIT/ML X5UNITS SUBQ SCH ×2 (08:38→19:30)
[2022-06-26 09:12] LABS: Kappa Qnt Free Light Chains 78.96 mg/L (3.30-19.40); Lambda Qnt Free Light Chains 31.8 mg/L (5.71-26.30)
[2022-06-26 10:10] LABS: ABG Base Excess 0 mEq/L (-2 to 3); ABG HCO3 25 mEq/L (21-27); ABG Oxygen Saturation 97 % (95-98); ABG PCO2 39 mmHg (35-45); ABG PO2 89 mmHg (85-104); ABG TCO2 26 mEq/L (20-26); Blood Gas Modality AF; Blood Gas VT 400 cc
[2022-06-26] MEDS: Dexmedetomidine HCl 400 MCG/100 ML MLS IVC SCH (16:26)
[2022-06-26] MEDS: *HR* LORazepam 2 MG/ML VIAL IVP PRN (17:24)
[2022-06-26] MEDS ORDERED: Insulin DETEMIR 100 UNIT/ML X5UNITS SUBQ SCH (21:00)
[2022-06-27] MEDS: Insulin LISPRO 300 UNITS/3 ML VIAL SUBQ SCH ×6 (02:18→19:52)
[2022-06-27] MEDS: Dexmedetomidine HCl 400 MCG/100 ML MLS IVC SCH ×2 (03:32→11:14)
[2022-06-27] MEDS: Ipratropium 1 PUFF INHALER IH SCH ×4 (04:20→21:09)
[2022-06-27 04:43] LABS: ABG Base Excess 0 mEq/L (-2 to 3); ABG HCO3 25 mEq/L (21-27); ABG Oxygen Saturation 92 % (95-98); ABG PCO2 46 mmHg (35-45); ABG PH 7.35 pH Units (7.32-7.45); ABG PO2 66 mmHg (85-104); ABG TCO2 27 mEq/L (20-26); Blood Gas Modality ASSIST CONTROL; Blood Gas VT 400 cc
[2022-06-27] MEDS: Artificial Tears SOLN 15 ML BOTTLE BOTH EYES SCH ×5 (04:52→19:51)
[2022-06-27] MEDS: FentaNYL (PF) 1,000 MCG/100 ML IV.SOLN IVC SCH ×3 (04:52→22:51)
[2022-06-27 05:00] LABS: Bilirubin,Direct 0.7 mg/dL (0.0-0.2); Bilirubin,Indirect 0.7 mg/dL (0.0-1.0); Bilirubin,Total 1.4 mg/dL (0.3-1.0); Calcium 9.9 mg/dL (8.6-10.3); Globulin 3.1 g/dL (2.4-3.5); Magnesium 2.6 mg/dL (1.6-2.6); Phosphorous 5.5 mg/dL (2.7-4.5); Potassium 4.4 mEq/L (3.5-5.1); Total Protein 6.1 g/dL (6.4-8.9)
[2022-06-27 05:18] LABS: Hemoglobin 8.9 g/dL (11.5-15.4); Mean Corpuscular Volume 92.2 fL (83.0-100.0)
[2022-06-27 05:20] LABS: Hematocrit 28.3 % (35.3-44.9); Immature Platelets 6.8 % (1.1-6.1); Mean Corpuscular HGB Conc 31.4 g/dL (31.6-35.5); Mean Platelet Volume 11.6 fL (9.4-12.4); Red Blood Count 3.07 M/mcL (3.82-4.97); Red Cell Distribution Width 17.9 % (11.5-14.5); White Blood Count 3.4 K/mcL (4.3-11.1)
[2022-06-27 05:45] LABS: Platelet Count 58 K/mcL (140-400)
[2022-06-27] MEDS: Pantoprazole 40 MG VIAL IVP SCH ×2 (06:33→17:25)
[2022-06-27] MEDS: Dexamethasone Sodium Phos/PF 10 MG/ML VIAL IVP SCH (08:35)
[2022-06-27] MEDS: Lactulose Oral Soln 20 GM/30 ML UDC PO SCH (08:36)
[2022-06-27] MEDS: Insulin DETEMIR 100 UNIT/ML X5UNITS SUBQ SCH ×2 (08:38→19:51)
[2022-06-27] MEDS: Chlorhexidine Rinse 15 ML MOUTHWASH MM SCH ×2 (08:38→19:51)
[2022-06-27] MEDS: Piperacillin/Tazobactam 3.375 GM in 0.9 % Sodium Chloride Mini Bag 100 ML IVPB SCH ×2 (08:38→19:49)
[2022-06-27 08:41] LABS: Lymphocytes # 0.1 K/mcL (0.6-4.6); Monocytes # 0.1 K/mcL (0.0-1.3); Neutrophils # 3.2 K/mcL (1.6-8.9)
[2022-06-27 08:42] LABS: Platelet Estimate Decreased (Normal)
[2022-06-27 08:43] LABS: Anisocytosis 1+ (Not Present); Polychromasia 1+ (Not Present); Toxic Granulation Present (Not Present)
[2022-06-27 10:20] LABS: INR 1.5; Prothrombin Time 16.6 Seconds (9.4-12.1)
[2022-06-27] MEDS: *HR* LORazepam 2 MG/ML VIAL IVP PRN ×2 (17:25→22:25)
[2022-06-28] MEDS: Artificial Tears SOLN 15 ML BOTTLE BOTH EYES SCH ×7 (00:29→23:56)
[2022-06-28] MEDS: Insulin LISPRO 300 UNITS/3 ML VIAL SUBQ SCH ×7 (00:29→23:56)
[2022-06-28] MEDS ORDERED: *HR* Labetalol 20 MG/4 ML SYRINGE IVP ONE ×2 (01:53→10:59)
[2022-06-28] MEDS: Dexmedetomidine HCl 400 MCG/100 ML MLS IVC SCH ×2 (02:31→11:11)
[2022-06-28] MEDS: FentaNYL (PF) 1,000 MCG/100 ML IV.SOLN IVC SCH ×3 (03:47→17:47)
[2022-06-28] MEDS: Ipratropium 1 PUFF INHALER IH SCH ×4 (03:49→22:51)
[2022-06-28 03:58] LABS: ABG Base Excess -2 mEq/L (-2 to 3); ABG HCO3 26 mEq/L (21-27); ABG Oxygen Saturation 96 % (95-98); ABG PCO2 55 mmHg (35-45); ABG PH 7.28 pH Units (7.32-7.45); ABG PO2 94 mmHg (85-104); ABG TCO2 27 mEq/L (20-26); Blood Gas VT 400 cc
[2022-06-28 04:13] LABS: Basophils % 0.2 %; Hemoglobin 10.3 g/dL (11.5-15.4); Mean Platelet Volume 11.5 fL (9.4-12.4)
[2022-06-28 04:15] LABS: Hematocrit 33.6 % (35.3-44.9); Immature Platelets 8.9 % (1.1-6.1); Lymphocytes # 0.2 K/mcL (0.6-4.6); Lymphocytes % 3.3 %; Mean Corpuscular HGB Conc 30.7 g/dL (31.6-35.5); Mean Corpuscular Volume 94.6 fL (83.0-100.0); Monocytes # 0.5 K/mcL (0.0-1.3); Monocytes % 7.6 %; Neutrophils # 5.5 K/mcL (1.6-8.9); Nucleated Red Blood Cells 0.9 /100 WBC (0); Red Blood Count 3.55 M/mcL (3.82-4.97); Red Cell Distribution Width 18.4 % (11.5-14.5); Segmented Neutrophils % 85.9 %; White Blood Count 6.4 K/mcL (4.3-11.1)
[2022-06-28 04:22] LABS: Platelet Count 67 K/mcL (140-400)
[2022-06-28 04:24] LABS: INR 1.4; Prothrombin Time 15.8 Seconds (9.4-12.1)
[2022-06-28 04:32] LABS: Albumin 3.1 g/dL (3.5-5.7); Albumin/Globulin Ratio 0.9 (1.1-2.2); Bilirubin,Direct 0.6 mg/dL (0.0-0.2); Bilirubin,Indirect 0.7 mg/dL (0.0-1.0); Bilirubin,Total 1.3 mg/dL (0.3-1.0); Calcium 10.1 mg/dL (8.6-10.3); Globulin 3.3 g/dL (2.4-3.5); Magnesium 2.8 mg/dL (1.6-2.6); Potassium 4.3 mEq/L (3.5-5.1); Total Protein 6.4 g/dL (6.4-8.9)
[2022-06-28] MEDS: Pantoprazole 40 MG VIAL IVP SCH ×2 (05:23→17:03)
[2022-06-28] MEDS ORDERED: Furosemide 40 MG/4 ML VIAL IVP ONE (07:37)
[2022-06-28] MEDS: Lactulose Oral Soln 20 GM/30 ML UDC PO SCH (08:34)
[2022-06-28] MEDS: Chlorhexidine Rinse 15 ML MOUTHWASH MM SCH ×2 (08:34→19:39)
[2022-06-28] MEDS: Insulin DETEMIR 100 UNIT/ML X5UNITS SUBQ SCH ×2 (08:34→19:40)
[2022-06-28] MEDS: Dexamethasone Sodium Phos/PF 10 MG/ML VIAL IVP SCH (08:34)
[2022-06-28] MEDS ORDERED: Insulin DETEMIR 100 UNIT/ML X5UNITS SUBQ SCH (09:00)
[2022-06-28] MEDS ORDERED: Insulin DETEMIR 100 UNIT/ML X5UNITS SUBQ ONE (09:22)
[2022-06-28] MEDS: *HR* LORazepam 2 MG/ML VIAL IVP PRN (12:31)
[2022-06-28] MEDS: amLODIPine 5 MG TABLET PO SCH (13:59)
[2022-06-28] MEDS ORDERED: *HR* LORazepam 2 MG/ML VIAL IVP ONE (14:25)
[2022-06-28] MEDS: niCARdipine 20 MG/200 ML MLS IVC SCH ×2 (17:00→21:03)
[2022-06-29] MEDS: FentaNYL (PF) 1,000 MCG/100 ML IV.SOLN IVC SCH (03:33)
[2022-06-29 03:38] LABS: Hemoglobin 9.4 g/dL (11.5-15.4); Immature Granulocytes % 2.5 % (0-4); Nucleated Red Blood Cells 0.7 /100 WBC (0)
[2022-06-29] MEDS: Insulin LISPRO 300 UNITS/3 ML VIAL SUBQ SCH ×5 (03:39→20:02)
[2022-06-29 03:40] LABS: Hematocrit 31.3 % (35.3-44.9); Immature Platelets 8.7 % (1.1-6.1); Lymphocytes # 0.2 K/mcL (0.6-4.6); Lymphocytes % 5.2 %; Mean Corpuscular Hemoglobin 29.3 pg (28.0-33.3); Mean Corpuscular Volume 97.5 fL (83.0-100.0); Mean Platelet Volume 11.9 fL (9.4-12.4); Monocytes # 0.5 K/mcL (0.0-1.3); Monocytes % 10.8 %; Red Blood Count 3.21 M/mcL (3.82-4.97); Red Cell Distribution Width 19.3 % (11.5-14.5); Segmented Neutrophils % 81.5 %; White Blood Count 4.5 K/mcL (4.3-11.1)
[2022-06-29] MEDS: Artificial Tears SOLN 15 ML BOTTLE BOTH EYES SCH ×5 (03:42→20:01)
[2022-06-29 03:55] LABS: Calcium 10.1 mg/dL (8.6-10.3); INR 1.4; Magnesium 2.9 mg/dL (1.6-2.6); Phosphorous 6.6 mg/dL (2.7-4.5); Potassium 4.9 mEq/L (3.5-5.1); Prothrombin Time 15.4 Seconds (9.4-12.1)
[2022-06-29 03:56] LABS: Neutrophils # 3.7 K/mcL (1.6-8.9); Platelet Count 68 K/mcL (140-400)
[2022-06-29] MEDS: Ipratropium 1 PUFF INHALER IH SCH ×4 (04:10→22:56)
[2022-06-29] MEDS: niCARdipine 20 MG/200 ML MLS IVC SCH ×8 (04:13→22:52)
[2022-06-29] MEDS: Pantoprazole 40 MG VIAL IVP SCH ×2 (04:17→17:56)
[2022-06-29 04:42] LABS: ABG Base Excess -1 mEq/L (-2 to 3); ABG HCO3 27 mEq/L (21-27); ABG Oxygen Saturation 94 % (95-98); ABG PCO2 57 mmHg (35-45); ABG PH 7.28 pH Units (7.32-7.45); ABG PO2 83 mmHg (85-104); ABG TCO2 28 mEq/L (20-26); Blood Gas Modality ASSIST CONTROL; Blood Gas VT 400 cc
[2022-06-29] MEDS: Dexmedetomidine HCl 400 MCG/100 ML MLS IVC SCH (08:49)
[2022-06-29] MEDS: Lactulose Oral Soln 20 GM/30 ML UDC PO SCH (08:51)
[2022-06-29] MEDS: Chlorhexidine Rinse 15 ML MOUTHWASH MM SCH ×2 (08:52→20:01)
[2022-06-29] MEDS: amLODIPine 5 MG TABLET PO SCH (08:52)
[2022-06-29] MEDS: Dexamethasone Sodium Phos/PF 10 MG/ML VIAL IVP SCH (08:52)
[2022-06-29] MEDS: Insulin DETEMIR 100 UNIT/ML X5UNITS SUBQ SCH ×2 (08:53→20:01)
[2022-06-29 15:14] LABS: RBC,Pleural Fluid < 2000 RBC/mcL
[2022-06-29 15:20] LABS: Appearance of Pleural Fl Clear (Clear)
[2022-06-29 16:29] LABS: Basophils,Pleural Fluid 0 %; Eosinophils,Pleural Fluid 0 %; Monocytes,Pleural Fluid 0 %
[2022-06-29 17:17] LABS: Amylase,Pleural Fluid < 10 Units/L (No Ref Range); Glucose,Pleural Fluid 262 mg/dL (No Ref Range); LDH,Pleural Fluid 69 Units/L (No Ref Range); Total Protein,Pleural Fluid < 2.0 g/dL
[2022-06-29 18:24] LABS: Lactate Dehydrogenase 137 Units/L (140-271); Total Protein 3.7 g/dL (6.4-8.9)
[2022-06-30] MEDS: Dexmedetomidine HCl 400 MCG/100 ML MLS IVC SCH ×2 (00:16→17:20)
[2022-06-30] MEDS: Artificial Tears SOLN 15 ML BOTTLE BOTH EYES SCH ×6 (00:25→22:09)
[2022-06-30] MEDS: Insulin LISPRO 300 UNITS/3 ML VIAL SUBQ SCH ×7 (00:27→22:10)
[2022-06-30] MEDS: Ipratropium 1 PUFF INHALER IH SCH ×4 (03:46→22:57)
[2022-06-30 03:49] LABS: ABG Base Excess -2 mEq/L (-2 to 3); ABG HCO3 25 mEq/L (21-27); ABG Oxygen Saturation 96 % (95-98); ABG PCO2 49 mmHg (35-45); ABG PH 7.31 pH Units (7.32-7.45); ABG PO2 92 mmHg (85-104); ABG TCO2 26 mEq/L (20-26); Blood Gas VT 400 cc
[2022-06-30] MEDS: Pantoprazole 40 MG VIAL IVP SCH ×2 (04:56→17:17)
[2022-06-30] MEDS: niCARdipine 20 MG/200 ML MLS IVC SCH ×8 (04:56→22:08)
[2022-06-30 05:57] LABS: Mean Corpuscular HGB Conc 29.9 g/dL (31.6-35.5); Nucleated Red Blood Cells 0.5 /100 WBC (0); Red Cell Distribution Width 19.5 % (11.5-14.5)
[2022-06-30 05:58] LABS: Hematocrit 28.4 % (35.3-44.9); Hemoglobin 8.5 g/dL (11.5-15.4); Immature Granulocytes % 1.5 % (0-4); Immature Platelets 7.1 % (1.1-6.1); Lymphocytes # 0.3 K/mcL (0.6-4.6); Lymphocytes % 6.6 %; Mean Corpuscular Hemoglobin 28.9 pg (28.0-33.3); Mean Corpuscular Volume 96.6 fL (83.0-100.0); Mean Platelet Volume 12.5 fL (9.4-12.4); Monocytes # 0.5 K/mcL (0.0-1.3); Neutrophils # 3.3 K/mcL (1.6-8.9); Red Blood Count 2.94 M/mcL (3.82-4.97); Segmented Neutrophils % 79.9 %; White Blood Count 4.1 K/mcL (4.3-11.1)
[2022-06-30 06:01] LABS: INR 1.3; Prothrombin Time 14.4 Seconds (9.4-12.1)
[2022-06-30 06:02] LABS: Platelet Count 79 K/mcL (140-400)
[2022-06-30] MEDS: Lactulose Oral Soln 20 GM/30 ML UDC PO SCH (07:44)
[2022-06-30] MEDS: Chlorhexidine Rinse 15 ML MOUTHWASH MM SCH ×2 (07:44→22:10)
[2022-06-30] MEDS: amLODIPine 5 MG TABLET PO SCH (07:44)
[2022-06-30] MEDS: Insulin DETEMIR 100 UNIT/ML X5UNITS SUBQ SCH ×2 (08:06→22:10)
[2022-06-30 08:52] LABS: Calcium 9.8 mg/dL (8.6-10.3)
[2022-06-30] MEDS: FentaNYL (PF) 1,000 MCG/100 ML IV.SOLN IVC SCH (11:02)
[2022-06-30] MEDS ORDERED: Insulin DETEMIR 100 UNIT/ML X5UNITS SUBQ ONE (11:34)
[2022-06-30] MEDS ORDERED: Lactulose Oral Soln 20 GM/30 ML UDC PO SCH (21:00)
[2022-07-01] MEDS: Artificial Tears SOLN 15 ML BOTTLE BOTH EYES SCH ×7 (00:08→23:29)
[2022-07-01] MEDS: niCARdipine 20 MG/200 ML MLS IVC SCH ×8 (00:09→23:28)
[2022-07-01] MEDS: Insulin LISPRO 300 UNITS/3 ML VIAL SUBQ SCH ×7 (00:09→23:29)
[2022-07-01] MEDS: Ipratropium 1 PUFF INHALER IH SCH ×4 (03:56→22:49)
[2022-07-01 04:02] LABS: ABG Base Excess -2 mEq/L (-2 to 3); ABG HCO3 25 mEq/L (21-27); ABG Oxygen Saturation 98 % (95-98); ABG PCO2 49 mmHg (35-45); ABG PH 7.31 pH Units (7.32-7.45); ABG PO2 115 mmHg (85-104); ABG TCO2 26 mEq/L (20-26); Blood Gas VT 400 cc
[2022-07-01 04:37] LABS: Hemoglobin 8.6 g/dL (11.5-15.4)
[2022-07-01] MEDS: Pantoprazole 40 MG VIAL IVP SCH ×2 (04:37→17:48)
[2022-07-01 04:39] LABS: Basophils % 0.2 %; Eosinophils # 0.1 K/mcL (0.0-0.6); Eosinophils % 0.9 %; Hematocrit 29.2 % (35.3-44.9); Immature Granulocytes % 1.2 % (0-4); Immature Platelets 5.9 % (1.1-6.1); Lymphocytes # 0.6 K/mcL (0.6-4.6); Lymphocytes % 8.4 %; Mean Corpuscular HGB Conc 29.5 g/dL (31.6-35.5); Mean Corpuscular Hemoglobin 28.9 pg (28.0-33.3); Mean Platelet Volume 12.4 fL (9.4-12.4); Monocytes # 0.7 K/mcL (0.0-1.3); Monocytes % 10.4 %; Neutrophils # 5.2 K/mcL (1.6-8.9); Nucleated Red Blood Cells 0.3 /100 WBC (0); Platelet Count 75 K/mcL (140-400); Red Blood Count 2.98 M/mcL (3.82-4.97); Red Cell Distribution Width 19.9 % (11.5-14.5); Segmented Neutrophils % 78.9 %; White Blood Count 6.6 K/mcL (4.3-11.1)
[2022-07-01] MEDS: Dexmedetomidine HCl 400 MCG/100 ML MLS IVC SCH ×3 (04:45→19:57)
[2022-07-01 04:47] LABS: INR 1.2; Prothrombin Time 13.8 Seconds (9.4-12.1)
[2022-07-01 05:31] LABS: Albumin 2.8 g/dL (3.5-5.7); Bilirubin,Direct 0.5 mg/dL (0.0-0.2); Bilirubin,Indirect 0.5 mg/dL (0.0-1.0); Calcium 9.3 mg/dL (8.6-10.3); Globulin 2.8 g/dL (2.4-3.5); Magnesium 2.9 mg/dL (1.6-2.6); Phosphorous 5.4 mg/dL (2.7-4.5); Potassium 4.8 mEq/L (3.5-5.1); Total Protein 5.6 g/dL (6.4-8.9)
[2022-07-01 06:58] LABS: VBG Ionized Calcium 1.38 mmol/L (1.15-1.35)
[2022-07-01] MEDS: amLODIPine 5 MG TABLET PO SCH (07:53)
[2022-07-01] MEDS: Lactulose Oral Soln 20 GM/30 ML UDC PO SCH ×2 (07:53→19:56)
[2022-07-01] MEDS: Insulin DETEMIR 100 UNIT/ML X5UNITS SUBQ SCH ×2 (07:53→19:56)
[2022-07-01] MEDS: Chlorhexidine Rinse 15 ML MOUTHWASH MM SCH ×2 (07:53→19:56)
[2022-07-01] MEDS: Erythromycin OPTH Oint BOTH EYES SCH ×3 (11:46→19:59)
[2022-07-01] MEDS: Thiamine (B-1) 100 MG in 0.9 % Sodium Chloride 50 ML IVPB SCH ×3 (11:46→19:56)
[2022-07-01] MEDS ORDERED: Furosemide 40 MG/4 ML VIAL IVP ONE (13:03)
[2022-07-02] MEDS: niCARdipine 20 MG/200 ML MLS IVC SCH ×5 (02:00→10:06)
[2022-07-02] MEDS: Ipratropium 1 PUFF INHALER IH SCH ×4 (03:46→22:37)
[2022-07-02] MEDS: Artificial Tears SOLN 15 ML BOTTLE BOTH EYES SCH ×6 (04:00→23:30)
[2022-07-02 04:02] LABS: ABG Base Excess -1 mEq/L (-2 to 3); ABG HCO3 24 mEq/L (21-27); ABG Oxygen Saturation 97 % (95-98); ABG PCO2 44 mmHg (35-45); ABG PH 7.35 pH Units (7.32-7.45); ABG PO2 100 mmHg (85-104); ABG TCO2 26 mEq/L (20-26); Blood Gas VT 400 cc
[2022-07-02 04:19] LABS: Lymphocytes % 5.6 %; Red Cell Distribution Width 20.3 % (11.5-14.5)
[2022-07-02 04:21] LABS: Basophils % 0.2 %; Eosinophils # 0.1 K/mcL (0.0-0.6); Eosinophils % 0.7 %; Hematocrit 34.1 % (35.3-44.9); Hemoglobin 10.1 g/dL (11.5-15.4); Immature Granulocytes % 1.4 % (0-4); Immature Platelets 5.8 % (1.1-6.1); Lymphocytes # 0.6 K/mcL (0.6-4.6); Mean Corpuscular HGB Conc 29.6 g/dL (31.6-35.5); Mean Corpuscular Hemoglobin 28.9 pg (28.0-33.3); Mean Corpuscular Volume 97.7 fL (83.0-100.0); Mean Platelet Volume 12.2 fL (9.4-12.4); Monocytes # 0.7 K/mcL (0.0-1.3); Monocytes % 7.5 %; Neutrophils # 8.3 K/mcL (1.6-8.9); Nucleated Red Blood Cells 0.3 /100 WBC (0); Red Blood Count 3.49 M/mcL (3.82-4.97); Segmented Neutrophils % 84.6 %; White Blood Count 9.8 K/mcL (4.3-11.1)
[2022-07-02 04:25] LABS: INR 1.3; Platelet Count 89 K/mcL (140-400); Prothrombin Time 14.2 Seconds (9.4-12.1)
[2022-07-02 04:53] LABS: Albumin 3.1 g/dL (3.5-5.7); Bilirubin,Direct 0.8 mg/dL (0.0-0.2); Bilirubin,Indirect 0.6 mg/dL (0.0-1.0); Bilirubin,Total 1.4 mg/dL (0.3-1.0); Calcium 9.6 mg/dL (8.6-10.3); Globulin 3.1 g/dL (2.4-3.5); Potassium 4.9 mEq/L (3.5-5.1); Total Protein 6.2 g/dL (6.4-8.9)
[2022-07-02] MEDS: Insulin LISPRO 300 UNITS/3 ML VIAL SUBQ SCH ×5 (05:04→19:59)
[2022-07-02] MEDS: FentaNYL (PF) 1,000 MCG/100 ML IV.SOLN IVC SCH ×2 (05:04→22:32)
[2022-07-02] MEDS: Pantoprazole 40 MG VIAL IVP SCH ×2 (05:31→16:12)
[2022-07-02] MEDS: Lactulose Oral Soln 20 GM/30 ML UDC PO SCH ×2 (08:25→19:32)
[2022-07-02] MEDS: Chlorhexidine Rinse 15 ML MOUTHWASH MM SCH ×2 (08:25→19:32)
[2022-07-02] MEDS: amLODIPine 5 MG TABLET PO SCH (08:25)
[2022-07-02] MEDS: Erythromycin OPTH Oint BOTH EYES SCH ×3 (08:28→19:36)
[2022-07-02] MEDS: Insulin DETEMIR 100 UNIT/ML X5UNITS SUBQ SCH ×2 (08:31→19:37)
[2022-07-02] MEDS: Thiamine (B-1) 100 MG in 0.9 % Sodium Chloride 50 ML IVPB SCH ×3 (10:28→19:37)
[2022-07-02] MEDS ORDERED: amLODIPine 5 MG TABLET PO ONE (10:40)
[2022-07-02] MEDS ORDERED: NICARDIPINE IVC SCH ×2 (10:45→11:15)
[2022-07-02] MEDS ORDERED: D5 IVC SCH ×2 (10:45→11:15)
[2022-07-02] MEDS ORDERED: WATER IVC SCH ×2 (10:45→11:15)
[2022-07-02] MEDS: WATER IVC PRN ×4 (11:55→22:31)
[2022-07-02] MEDS: NICARDIPINE IVC PRN ×4 (11:55→22:31)
[2022-07-02] MEDS: D5 IVC PRN ×4 (11:55→22:31)
[2022-07-02] MEDS: Albumin Human 5% 12.5 GM/250 ML IV.SOLN IVC SCH ×2 (11:56→12:26)
[2022-07-02 22:25] LABS: Thyroid Stimulating Hormone 1.3 mcIU/mL (0.340-5.600)
[2022-07-02] MEDS: Norepinephrine 4 MG/254 ML IV.SOLN IVC SCH (23:12)
[2022-07-03] MEDS: Insulin LISPRO 300 UNITS/3 ML VIAL SUBQ SCH ×6 (00:50→20:29)
[2022-07-03] MEDS: Dexmedetomidine HCl 400 MCG/100 ML MLS IVC SCH ×2 (00:54→23:23)
[2022-07-03] MEDS: D5 IVC PRN ×4 (01:03→12:44)
[2022-07-03] MEDS: WATER IVC PRN ×4 (01:03→12:44)
[2022-07-03] MEDS: NICARDIPINE IVC PRN ×4 (01:03→12:44)
[2022-07-03] MEDS: Ipratropium 1 PUFF INHALER IH SCH ×4 (03:55→21:37)
[2022-07-03 03:57] LABS: ABG Base Excess -3 mEq/L (-2 to 3); ABG HCO3 23 mEq/L (21-27); ABG Oxygen Saturation 96 % (95-98); ABG PCO2 42 mmHg (35-45); ABG PH 7.35 pH Units (7.32-7.45); ABG PO2 88 mmHg (85-104); ABG TCO2 24 mEq/L (20-26); Blood Gas Modality AF; Blood Gas VT 400 cc
[2022-07-03] MEDS: Artificial Tears SOLN 15 ML BOTTLE BOTH EYES SCH ×5 (04:08→20:27)
[2022-07-03] MEDS: Pantoprazole 40 MG VIAL IVP SCH ×2 (04:09→16:17)
[2022-07-03 04:28] LABS: Immature Granulocytes % 0.9 % (0-4)
[2022-07-03 04:31] LABS: Eosinophils # 0.1 K/mcL (0.0-0.6); Hematocrit 25.4 % (35.3-44.9); Hemoglobin 7.7 g/dL (11.5-15.4); Immature Platelets 5.4 % (1.1-6.1); Lymphocytes # 0.3 K/mcL (0.6-4.6); Mean Corpuscular HGB Conc 30.3 g/dL (31.6-35.5); Mean Corpuscular Hemoglobin 29.6 pg (28.0-33.3); Mean Corpuscular Volume 97.7 fL (83.0-100.0); Mean Platelet Volume 12.1 fL (9.4-12.4); Monocytes # 0.4 K/mcL (0.0-1.3); Monocytes % 10.3 %; Neutrophils # 2.8 K/mcL (1.6-8.9); Red Cell Distribution Width 19.4 % (11.5-14.5); Segmented Neutrophils % 78.8 %; White Blood Count 3.5 K/mcL (4.3-11.1)
[2022-07-03 04:35] LABS: Platelet Count 69 K/mcL (140-400)
[2022-07-03] MEDS: Norepinephrine 4 MG/254 ML IV.SOLN IVC SCH ×2 (04:52→19:54)
[2022-07-03 05:00] LABS: Albumin 2.8 g/dL (3.5-5.7); Bilirubin,Direct 0.6 mg/dL (0.0-0.2); Bilirubin,Indirect 0.6 mg/dL (0.0-1.0); Bilirubin,Total 1.2 mg/dL (0.3-1.0); Calcium 9.4 mg/dL (8.6-10.3); Globulin 2.7 g/dL (2.4-3.5); Potassium 4.7 mEq/L (3.5-5.1); Total Protein 5.5 g/dL (6.4-8.9)
[2022-07-03] MEDS: Lactulose Oral Soln 20 GM/30 ML UDC PO SCH ×2 (07:30→20:26)
[2022-07-03] MEDS: Thiamine (B-1) 100 MG in 0.9 % Sodium Chloride 50 ML IVPB SCH ×3 (07:30→20:26)
[2022-07-03] MEDS: Chlorhexidine Rinse 15 ML MOUTHWASH MM SCH ×2 (07:30→20:26)
[2022-07-03] MEDS: Insulin DETEMIR 100 UNIT/ML X5UNITS SUBQ SCH ×2 (07:31→20:26)
[2022-07-03] MEDS: Erythromycin OPTH Oint BOTH EYES SCH ×3 (07:32→20:28)
[2022-07-03] MEDS: amLODIPine 5 MG TABLET PO SCH (08:03)
[2022-07-03 08:08] LABS: Hematocrit 28.9 % (35.3-44.9); Hemoglobin 8.8 g/dL (11.5-15.4)
[2022-07-03] MEDS: carvediloL 6.25 MG TABLET GTUBE SCH ×2 (09:28→20:28)
[2022-07-03] MEDS ORDERED: Insulin DETEMIR 100 UNIT/ML X5UNITS SUBQ ONE (10:38)
[2022-07-03 12:34] LABS: Hematocrit 29.6 % (35.3-44.9); Hemoglobin 8.9 g/dL (11.5-15.4)
[2022-07-03 12:58] LABS: Cholesterol,Body Fluid 22 mg/dL; Fluid Source for Cholesterol PLEURAL FLUID; Fluid Source for Triglycerides PLEURAL FLUID; Triglycerides,Body Fluid 46 mg/dL
[2022-07-03] MEDS: niCARdipine 40 MG in 0.9 % Sodium Chloride 184 ML IVC PRN ×2 (18:22→21:50)
[2022-07-03 20:57] LABS: Hematocrit 30.4 % (35.3-44.9); Hemoglobin 9.4 g/dL (11.5-15.4)
[2022-07-03] MEDS ORDERED: *HR* FentaNYL (PF) 100 MCG/2 ML VIAL IVP PRN (21:48)
[2022-07-04] MEDS: Insulin LISPRO 300 UNITS/3 ML VIAL SUBQ SCH ×6 (00:37→20:19)
[2022-07-04] MEDS: Artificial Tears SOLN 15 ML BOTTLE BOTH EYES SCH ×7 (00:38→23:08)
[2022-07-04] MEDS: niCARdipine 40 MG in 0.9 % Sodium Chloride 184 ML IVC PRN (02:52)
[2022-07-04] MEDS: Ipratropium 1 PUFF INHALER IH SCH ×3 (03:31→15:09)
[2022-07-04 03:37] LABS: ABG Base Excess -2 mEq/L (-2 to 3); ABG HCO3 24 mEq/L (21-27); ABG Oxygen Saturation 96 % (95-98); ABG PCO2 44 mmHg (35-45); ABG PH 7.34 pH Units (7.32-7.45); ABG PO2 87 mmHg (85-104); ABG TCO2 25 mEq/L (20-26); Blood Gas Modality AF; Blood Gas VT 400 cc
[2022-07-04 04:18] LABS: Basophils % 0.2 %
[2022-07-04 04:20] LABS: Eosinophils % 0.7 %; Hematocrit 29.1 % (35.3-44.9); Hemoglobin 8.9 g/dL (11.5-15.4); Immature Platelets 6.3 % (1.1-6.1); Lymphocytes # 0.4 K/mcL (0.6-4.6); Lymphocytes % 6.3 %; Mean Corpuscular HGB Conc 30.6 g/dL (31.6-35.5); Mean Corpuscular Hemoglobin 29.6 pg (28.0-33.3); Mean Corpuscular Volume 96.7 fL (83.0-100.0); Mean Platelet Volume 12.5 fL (9.4-12.4); Monocytes # 0.6 K/mcL (0.0-1.3); Monocytes % 9.6 %; Neutrophils # 4.8 K/mcL (1.6-8.9); Platelet Count 69 K/mcL (140-400); Red Blood Count 3.01 M/mcL (3.82-4.97); Red Cell Distribution Width 18.9 % (11.5-14.5); Segmented Neutrophils % 82.2 %; White Blood Count 5.8 K/mcL (4.3-11.1)
[2022-07-04 04:55] LABS: Bilirubin,Indirect 0.7 mg/dL (0.0-1.0); Bilirubin,Total 1.7 mg/dL (0.3-1.0); Calcium 9.9 mg/dL (8.6-10.3); Globulin 3.1 g/dL (2.4-3.5); Potassium 4.9 mEq/L (3.5-5.1); Total Protein 6.1 g/dL (6.4-8.9)
[2022-07-04] MEDS: Pantoprazole 40 MG VIAL IVP SCH ×2 (05:19→17:18)
[2022-07-04] MEDS: Norepinephrine 4 MG/254 ML IV.SOLN IVC SCH ×3 (05:19→21:03)
[2022-07-04] MEDS: amLODIPine 5 MG TABLET PO SCH (08:07)
[2022-07-04] MEDS: carvediloL 6.25 MG TABLET GTUBE SCH (08:07)
[2022-07-04] MEDS: Chlorhexidine Rinse 15 ML MOUTHWASH MM SCH ×2 (08:07→20:19)
[2022-07-04] MEDS: Lactulose Oral Soln 20 GM/30 ML UDC PO SCH (08:07)
[2022-07-04] MEDS: Insulin DETEMIR 100 UNIT/ML X5UNITS SUBQ SCH ×2 (08:08→20:19)
[2022-07-04] MEDS: Thiamine (B-1) 100 MG in 0.9 % Sodium Chloride 50 ML IVPB SCH ×3 (08:09→20:19)
[2022-07-04] MEDS: Erythromycin OPTH Oint BOTH EYES SCH ×3 (08:10→20:19)
[2022-07-04] MEDS ORDERED: Furosemide 40 MG/4 ML VIAL IVP ONE (08:26)
[2022-07-04] MEDS ORDERED: 0.9 % Sodium Chloride 250 ML IVC PRN (09:10)
[2022-07-04] MEDS ORDERED: *HR* Heparin 10,000 UNIT/10 ML VIAL IV PRN (09:16)
[2022-07-04] MEDS ORDERED: 0.9 % Sodium Chloride 2,000 ML PRIME SCH (09:30)
[2022-07-04 11:18] LABS: ABG Base Excess 0 mEq/L (-2 to 3); ABG HCO3 26 mEq/L (21-27); ABG Oxygen Saturation 98 % (95-98); ABG PCO2 44 mmHg (35-45); ABG PH 7.37 pH Units (7.32-7.45); ABG PO2 107 mmHg (85-104); ABG TCO2 27 mEq/L (20-26)
[2022-07-04] MEDS ORDERED: Lactulose Oral Soln 20 GM/30 ML UDC PO ONE (14:24)
[2022-07-04] MEDS: Dexmedetomidine HCl 400 MCG/100 ML MLS IVC SCH (15:29)
[2022-07-04] MEDS ORDERED: D5% in Water 1,000 ML IVC PRN (16:10)
[2022-07-04] MEDS ORDERED: Glycopyrrolate 0.2 MG/ML VIAL IVP PRN (16:12)
[2022-07-04] MEDS ORDERED: *HR* Labetalol 20 MG/4 ML SYRINGE IVP PRN (17:07)
[2022-07-04] MEDS ORDERED: Albuterol 2.5 MG/3 ML NEBULIZER IH SCH (18:00)
[2022-07-04] MEDS: Acetylcysteine 10% 2 ML INHSOL IH SCH (21:44)
[2022-07-04] MEDS: Ipratropium/Albuterol Neb 3 ML IH SCH (21:46)
[2022-07-05] MEDS: Ipratropium/Albuterol Neb 3 ML IH SCH ×4 (03:13→22:41)
[2022-07-05] MEDS: Acetylcysteine 10% 2 ML INHSOL IH SCH ×4 (03:14→22:41)
[2022-07-05] MEDS: Artificial Tears SOLN 15 ML BOTTLE BOTH EYES SCH ×5 (03:19→21:28)
[2022-07-05 03:24] LABS: Hemoglobin 8.9 g/dL (11.5-15.4); Immature Granulocytes % 0.7 % (0-4)
[2022-07-05 03:26] LABS: Eosinophils # 0.1 K/mcL (0.0-0.6); Eosinophils % 3.2 %; Hematocrit 28.7 % (35.3-44.9); Lymphocytes # 0.3 K/mcL (0.6-4.6); Lymphocytes % 7.7 %; Mean Corpuscular Hemoglobin 29.2 pg (28.0-33.3); Mean Corpuscular Volume 94.1 fL (83.0-100.0); Mean Platelet Volume 12.6 fL (9.4-12.4); Monocytes # 0.4 K/mcL (0.0-1.3); Monocytes % 8.2 %; Neutrophils # 3.5 K/mcL (1.6-8.9); Red Blood Count 3.05 M/mcL (3.82-4.97); Red Cell Distribution Width 18.6 % (11.5-14.5); Segmented Neutrophils % 80.2 %; White Blood Count 4.4 K/mcL (4.3-11.1)
[2022-07-05 03:34] LABS: Platelet Count 71 K/mcL (140-400)
[2022-07-05 03:39] LABS: Albumin 2.9 g/dL (3.5-5.7); Bilirubin,Direct 0.9 mg/dL (0.0-0.2); Bilirubin,Indirect 0.7 mg/dL (0.0-1.0); Bilirubin,Total 1.6 mg/dL (0.3-1.0); Calcium 10.1 mg/dL (8.6-10.3); Magnesium 2.5 mg/dL (1.6-2.6); Phosphorous 3.9 mg/dL (2.7-4.5); Potassium 4.1 mEq/L (3.5-5.1); Total Protein 5.9 g/dL (6.4-8.9)
[2022-07-05] MEDS: Pantoprazole 40 MG VIAL IVP SCH ×2 (05:05→17:15)
[2022-07-05 08:16] LABS: ABG Base Excess 3 mEq/L (-2 to 3); ABG HCO3 28 mEq/L (21-27); ABG Oxygen Saturation 98 % (95-98); ABG PCO2 42 mmHg (35-45); ABG PH 7.43 pH Units (7.32-7.45); ABG PO2 97 mmHg (85-104); ABG TCO2 29 mEq/L (20-26)
[2022-07-05] MEDS ORDERED: Lactulose 200 GM, Sodium Chloride IRRigation 700 ML RC SCH (09:00)
[2022-07-05] MEDS ORDERED: Levothyroxine Sodium 100 MCG VIAL IVP SCH (09:00)
[2022-07-05] MEDS: Chlorhexidine Rinse 15 ML MOUTHWASH MM SCH ×2 (09:37→21:22)
[2022-07-05] MEDS: Dexmedetomidine HCl 400 MCG/100 ML MLS IVC SCH (09:40)
[2022-07-05] MEDS: Insulin DETEMIR 100 UNIT/ML X5UNITS SUBQ SCH (09:41)
[2022-07-05] MEDS: Erythromycin OPTH Oint BOTH EYES SCH ×3 (09:41→21:22)
[2022-07-05] MEDS: Insulin LISPRO 300 UNITS/3 ML VIAL SUBQ SCH ×4 (09:41→21:28)
[2022-07-05] MEDS ORDERED: Furosemide 40 MG/4 ML VIAL IVP SCH (10:30)
[2022-07-05] MEDS: Thiamine (B-1) 100 MG in 0.9 % Sodium Chloride 50 ML IVPB SCH ×3 (10:35→21:22)
[2022-07-05] MEDS: Norepinephrine 4 MG/254 ML IV.SOLN IVC SCH (17:16)
[2022-07-06] MEDS: Artificial Tears SOLN 15 ML BOTTLE BOTH EYES SCH ×7 (00:34→23:37)
[2022-07-06] MEDS: Insulin DETEMIR 100 UNIT/ML X5UNITS SUBQ SCH ×3 (00:34→21:00)
[2022-07-06] MEDS: *HR* Labetalol 20 MG/4 ML SYRINGE IVP PRN ×2 (00:49→04:34)
[2022-07-06] MEDS: Dexmedetomidine HCl 400 MCG/100 ML MLS IVC SCH (01:56)
[2022-07-06] MEDS: Ipratropium/Albuterol Neb 3 ML IH SCH ×4 (04:20→22:11)
[2022-07-06] MEDS: Acetylcysteine 10% 2 ML INHSOL IH SCH ×2 (04:20→10:23)
[2022-07-06 04:24] LABS: Hematocrit 31.2 % (35.3-44.9)
[2022-07-06 04:26] LABS: Eosinophils % 0.7 %; Hemoglobin 9.6 g/dL (11.5-15.4); Immature Granulocytes % 0.7 % (0-4); Immature Platelets 6.1 % (1.1-6.1); Lymphocytes # 0.4 K/mcL (0.6-4.6); Lymphocytes % 6.6 %; Mean Corpuscular HGB Conc 30.8 g/dL (31.6-35.5); Mean Corpuscular Hemoglobin 29.2 pg (28.0-33.3); Mean Corpuscular Volume 94.8 fL (83.0-100.0); Mean Platelet Volume 12.6 fL (9.4-12.4); Monocytes # 0.3 K/mcL (0.0-1.3); Monocytes % 5.5 %; Red Blood Count 3.29 M/mcL (3.82-4.97); Red Cell Distribution Width 19.6 % (11.5-14.5); Segmented Neutrophils % 86.5 %; White Blood Count 5.8 K/mcL (4.3-11.1)
[2022-07-06 04:29] LABS: Platelet Count 69 K/mcL (140-400)
[2022-07-06] MEDS: Pantoprazole 40 MG VIAL IVP SCH ×2 (04:34→17:53)
[2022-07-06 04:45] LABS: Albumin 2.8 g/dL (3.5-5.7); Albumin/Globulin Ratio 0.8 (1.1-2.2); Bilirubin,Direct 1.1 mg/dL (0.0-0.2); Bilirubin,Total 2.1 mg/dL (0.3-1.0); Calcium 10.3 mg/dL (8.6-10.3); Globulin 3.4 g/dL (2.4-3.5); Magnesium 2.6 mg/dL (1.6-2.6); Phosphorous 4.3 mg/dL (2.7-4.5); Potassium 4.6 mEq/L (3.5-5.1); Total Protein 6.2 g/dL (6.4-8.9)
[2022-07-06 04:59] LABS: Thyroid Stimulating Hormone 1.478 mcIU/mL (0.340-5.600)
[2022-07-06 05:01] LABS: Triiodothyronine (T3) Free 2.38 pg/mL (2.50-3.90)
[2022-07-06] MEDS ORDERED: *HR* Heparin 5,000 UNIT/ML VIAL SQ SCH (06:00)
[2022-07-06] MEDS: Insulin LISPRO 300 UNITS/3 ML VIAL SUBQ SCH ×3 (07:45→20:50)
[2022-07-06] MEDS ORDERED: LACTULOSE RC SCH (09:00)
[2022-07-06] MEDS ORDERED: SODIUM CHLORIDE IRRIGATION RC SCH (09:00)
[2022-07-06] MEDS ORDERED: *HR* Labetalol 20 MG/4 ML SYRINGE IVP SCH (09:00)
[2022-07-06] MEDS ORDERED: Glycopyrrolate 0.2 MG/ML VIAL IVP PRN (13:05)
[2022-07-06] MEDS ORDERED: Naloxone 0.4 MG/ML INJ IVP PRN (13:05)
[2022-07-06] MEDS ORDERED: 0.9 % Sodium Chloride 2,000 ML PRIME SCH (13:05)
[2022-07-06] MEDS ORDERED: Fluticasone Propionate Nasal 50 MCG/SPRAY BOTTLE NS PRN (13:05)
[2022-07-06] MEDS ORDERED: D5% in Water 1,000 ML IVC PRN (13:05)
[2022-07-06] MEDS ORDERED: Ondansetron ODT 4 MG TAB.RAPDIS SL PRN (13:05)
[2022-07-06] MEDS ORDERED: Dextrose Gel 15 GM/37.5 ML TUBE PO PRN ×2 (13:05)
[2022-07-06] MEDS ORDERED: *HR* LORazepam 2 MG/ML VIAL IVP PRN (13:05)
[2022-07-06] MEDS ORDERED: Artificial Tears SOLN 15 ML BOTTLE BOTH EYES PRN (13:05)
[2022-07-06] MEDS: Erythromycin OPTH Oint BOTH EYES SCH ×2 (16:00→20:49)
[2022-07-06] MEDS: *HR* Heparin 5,000 UNIT/ML VIAL SQ SCH (17:52)
[2022-07-06] MEDS: Thiamine (B-1) 100 MG in 0.9 % Sodium Chloride 50 ML IVPB SCH ×2 (17:53→20:50)
[2022-07-06] MEDS: *HR* Labetalol 20 MG/4 ML SYRINGE IVP SCH (20:47)
[2022-07-06] MEDS: Chlorhexidine Rinse 15 ML MOUTHWASH MM SCH (20:47)
[2022-07-07 03:56] LABS: Basophils % 0.2 %; Red Cell Distribution Width 19.7 % (11.5-14.5)
[2022-07-07 03:58] LABS: Eosinophils % 0.4 %; Hematocrit 30.9 % (35.3-44.9); Hemoglobin 9.3 g/dL (11.5-15.4); Immature Granulocytes % 0.7 % (0-4); Immature Platelets 5.6 % (1.1-6.1); Lymphocytes # 0.3 K/mcL (0.6-4.6); Lymphocytes % 7.1 %; Mean Corpuscular HGB Conc 30.1 g/dL (31.6-35.5); Mean Corpuscular Hemoglobin 29.5 pg (28.0-33.3); Mean Corpuscular Volume 98.1 fL (83.0-100.0); Mean Platelet Volume 12.3 fL (9.4-12.4); Monocytes # 0.2 K/mcL (0.0-1.3); Monocytes % 4.9 %; Neutrophils # 3.9 K/mcL (1.6-8.9); Red Blood Count 3.15 M/mcL (3.82-4.97); Segmented Neutrophils % 86.7 %; White Blood Count 4.5 K/mcL (4.3-11.1)
[2022-07-07 04:00] LABS: Platelet Count 66 K/mcL (140-400)
[2022-07-07] MEDS: Ipratropium/Albuterol Neb 3 ML IH SCH ×4 (04:10→21:19)
[2022-07-07 04:17] LABS: Albumin 2.8 g/dL (3.5-5.7); Albumin/Globulin Ratio 0.8 (1.1-2.2); Bilirubin,Direct 1.2 mg/dL (0.0-0.2); Bilirubin,Total 2.2 mg/dL (0.3-1.0); Calcium 10.2 mg/dL (8.6-10.3); Globulin 3.4 g/dL (2.4-3.5); Magnesium 2.9 mg/dL (1.6-2.6); Phosphorous 4.2 mg/dL (2.7-4.5); Potassium 4.7 mEq/L (3.5-5.1); Total Protein 6.2 g/dL (6.4-8.9)
[2022-07-07] MEDS: Artificial Tears SOLN 15 ML BOTTLE BOTH EYES SCH ×5 (05:52→20:52)
[2022-07-07] MEDS: Pantoprazole 40 MG VIAL IVP SCH ×2 (06:36→17:00)
[2022-07-07] MEDS: *HR* Heparin 5,000 UNIT/ML VIAL SQ SCH ×2 (06:36→17:00)
[2022-07-07] MEDS: Levothyroxine Sodium 100 MCG VIAL IVP SCH (07:39)
[2022-07-07] MEDS: Chlorhexidine Rinse 15 ML MOUTHWASH MM SCH ×2 (07:39→20:47)
[2022-07-07] MEDS: Insulin LISPRO 300 UNITS/3 ML VIAL SUBQ SCH ×4 (07:40→20:49)
[2022-07-07] MEDS: *HR* Labetalol 20 MG/4 ML SYRINGE IVP SCH ×2 (07:40→20:49)
[2022-07-07] MEDS: LACTULOSE RC SCH (07:41)
[2022-07-07] MEDS: SODIUM CHLORIDE IRRIGATION RC SCH (07:41)
[2022-07-07] MEDS: Erythromycin OPTH Oint BOTH EYES SCH ×3 (07:41→20:52)
[2022-07-07] MEDS: Insulin DETEMIR 100 UNIT/ML X5UNITS SUBQ SCH ×2 (07:44→20:47)
[2022-07-07] MEDS: Thiamine (B-1) 100 MG in 0.9 % Sodium Chloride 50 ML IVPB SCH ×3 (07:45→20:48)
[2022-07-07] MEDS ORDERED: Furosemide 40 MG/4 ML VIAL IVP SCH (09:00)
[2022-07-07] MEDS ORDERED: Bisacodyl 10 MG RECTAL SUPPOSITORY RC PRN (14:06)
[2022-07-08] MEDS: Artificial Tears SOLN 15 ML BOTTLE BOTH EYES SCH ×7 (01:11→21:05)
[2022-07-08] MEDS: Ipratropium/Albuterol Neb 3 ML IH SCH ×4 (04:02→22:49)
[2022-07-08 05:36] LABS: Hemoglobin 9.2 g/dL (11.5-15.4); Red Cell Distribution Width 19.4 % (11.5-14.5)
[2022-07-08 05:38] LABS: Basophils % 0.2 %; Eosinophils # 0.1 K/mcL (0.0-0.6); Eosinophils % 1.4 %; Hematocrit 31.5 % (35.3-44.9); Immature Granulocytes % 0.5 % (0-4); Immature Platelets 4.4 % (1.1-6.1); Lymphocytes % 10.6 %; Mean Corpuscular HGB Conc 29.2 g/dL (31.6-35.5); Mean Corpuscular Hemoglobin 28.7 pg (28.0-33.3); Mean Corpuscular Volume 98.1 fL (83.0-100.0); Mean Platelet Volume 11.7 fL (9.4-12.4); Monocytes # 0.2 K/mcL (0.0-1.3); Red Blood Count 3.21 M/mcL (3.82-4.97); Segmented Neutrophils % 82.3 %; White Blood Count 4.2 K/mcL (4.3-11.1)
[2022-07-08 05:42] LABS: Lymphocytes # 0.5 K/mcL (0.6-4.6); Neutrophils # 3.5 K/mcL (1.6-8.9); Platelet Count 77 K/mcL (140-400)
[2022-07-08 06:28] LABS: Albumin 2.8 g/dL (3.5-5.7); Albumin/Globulin Ratio 0.8 (1.1-2.2); Bilirubin,Direct 1.4 mg/dL (0.0-0.2); Bilirubin,Indirect 0.8 mg/dL (0.0-1.0); Bilirubin,Total 2.2 mg/dL (0.3-1.0); Calcium 10.4 mg/dL (8.6-10.3); Globulin 3.6 g/dL (2.4-3.5); Magnesium 2.9 mg/dL (1.6-2.6); Phosphorous 3.2 mg/dL (2.7-4.5); Potassium 4.2 mEq/L (3.5-5.1); Total Protein 6.4 g/dL (6.4-8.9)
[2022-07-08] MEDS: Insulin LISPRO 300 UNITS/3 ML VIAL SUBQ SCH ×5 (06:30→20:49)
[2022-07-08] MEDS: Pantoprazole 40 MG VIAL IVP SCH ×2 (06:32→16:46)
[2022-07-08] MEDS: *HR* Heparin 5,000 UNIT/ML VIAL SQ SCH ×2 (06:32→16:45)
[2022-07-08] MEDS: Chlorhexidine Rinse 15 ML MOUTHWASH MM SCH ×2 (08:45→21:04)
[2022-07-08] MEDS: Erythromycin OPTH Oint BOTH EYES SCH ×4 (08:46→21:04)
[2022-07-08] MEDS: Thiamine (B-1) 100 MG in 0.9 % Sodium Chloride 50 ML IVPB SCH ×3 (08:46→21:03)
[2022-07-08] MEDS: *HR* Labetalol 20 MG/4 ML SYRINGE IVP SCH ×2 (08:46→21:04)
[2022-07-08] MEDS: Levothyroxine Sodium 100 MCG VIAL IVP SCH (08:47)
[2022-07-08] MEDS: Insulin DETEMIR 100 UNIT/ML X5UNITS SUBQ SCH ×2 (08:59→20:49)
[2022-07-08] MEDS: LACTULOSE RC SCH (09:53)
[2022-07-08] MEDS: SODIUM CHLORIDE IRRIGATION RC SCH (09:53)
[2022-07-08] MEDS: D5% in Water 1,000 ML IVC SCH (09:54)
[2022-07-08] MEDS: *HR* Dextrose 50 % in Water (Syg) 50 ML SYRINGE IVP PRN (16:44)
[2022-07-08] MEDS: *HR* HYDROmorphone 2 MG/ML SYRINGE IVP PRN (16:45)
[2022-07-08] MEDS ORDERED: Ipratropium/Albuterol Neb 3 ML ONE (20:13)
[2022-07-08] MEDS: *HR* FentaNYL (PF) 100 MCG/2 ML VIAL IVP PRN (22:25)
[2022-07-09] MEDS: Artificial Tears SOLN 15 ML BOTTLE BOTH EYES SCH ×6 (00:02→21:35)
[2022-07-09] MEDS: *HR* Labetalol 20 MG/4 ML SYRINGE IVP PRN ×3 (02:23→16:56)
[2022-07-09] MEDS: Ipratropium/Albuterol Neb 3 ML IH SCH ×4 (04:35→22:45)
[2022-07-09] MEDS: *HR* Heparin 5,000 UNIT/ML VIAL SQ SCH ×2 (05:39→17:44)
[2022-07-09 06:05] LABS: Mean Corpuscular Volume 100.6 fL (83.0-100.0); Monocytes % 5.7 %
[2022-07-09 06:07] LABS: Eosinophils # 0.1 K/mcL (0.0-0.6); Eosinophils % 1.9 %; Hemoglobin 9.2 g/dL (11.5-15.4); Immature Granulocytes % 0.3 % (0-4); Immature Platelets 4.1 % (1.1-6.1); Lymphocytes # 0.5 K/mcL (0.6-4.6); Lymphocytes % 12.2 %; Mean Corpuscular HGB Conc 28.8 g/dL (31.6-35.5); Mean Corpuscular Hemoglobin 28.9 pg (28.0-33.3); Monocytes # 0.2 K/mcL (0.0-1.3); Red Blood Count 3.18 M/mcL (3.82-4.97); Red Cell Distribution Width 19.6 % (11.5-14.5); Segmented Neutrophils % 79.9 %; White Blood Count 3.7 K/mcL (4.3-11.1)
[2022-07-09 06:09] LABS: Platelet Count 59 K/mcL (140-400)
[2022-07-09] MEDS: D5% in Water 1,000 ML IVC SCH (06:10)
[2022-07-09] MEDS: Pantoprazole 40 MG VIAL IVP SCH ×2 (06:11→17:44)
[2022-07-09] MEDS: *HR* FentaNYL (PF) 100 MCG/2 ML VIAL IVP PRN ×2 (06:11→09:44)
[2022-07-09 06:33] LABS: Albumin 2.7 g/dL (3.5-5.7); Albumin/Globulin Ratio 0.8 (1.1-2.2); Bilirubin,Direct 1.3 mg/dL (0.0-0.2); Bilirubin,Total 2.3 mg/dL (0.3-1.0); Calcium 10.3 mg/dL (8.6-10.3); Globulin 3.6 g/dL (2.4-3.5); Magnesium 2.8 mg/dL (1.6-2.6); Phosphorous 2.7 mg/dL (2.7-4.5); Total Protein 6.3 g/dL (6.4-8.9)
[2022-07-09] MEDS: Insulin LISPRO 300 UNITS/3 ML VIAL SUBQ SCH ×4 (09:43→21:36)
[2022-07-09] MEDS: Erythromycin OPTH Oint BOTH EYES SCH ×3 (09:43→21:34)
[2022-07-09] MEDS: Chlorhexidine Rinse 15 ML MOUTHWASH MM SCH ×2 (09:44→21:34)
[2022-07-09] MEDS: Insulin DETEMIR 100 UNIT/ML X5UNITS SUBQ SCH ×2 (09:56→21:33)
[2022-07-09] MEDS: Levothyroxine Sodium 100 MCG VIAL IVP SCH (09:56)
[2022-07-09] MEDS: *HR* Labetalol 20 MG/4 ML SYRINGE IVP SCH ×2 (10:03→21:33)
[2022-07-09] MEDS: Thiamine (B-1) 100 MG in 0.9 % Sodium Chloride 50 ML IVPB SCH ×3 (10:20→22:12)
[2022-07-09] MEDS: LACTULOSE RC SCH (11:03)
[2022-07-09] MEDS: SODIUM CHLORIDE IRRIGATION RC SCH (11:03)
[2022-07-09] MEDS: *HR* LORazepam 2 MG/ML VIAL IVP PRN (11:58)
[2022-07-09] MEDS: *HR* HYDROmorphone 2 MG/ML SYRINGE IVP PRN (13:00)
[2022-07-10] MEDS: Artificial Tears SOLN 15 ML BOTTLE BOTH EYES SCH ×6 (00:53→20:06)
[2022-07-10] MEDS: D5% in Water 1,000 ML IVC SCH (01:56)
[2022-07-10] MEDS: Ipratropium/Albuterol Neb 3 ML IH SCH ×4 (04:00→22:26)
[2022-07-10] MEDS: *HR* Heparin 5,000 UNIT/ML VIAL SQ SCH ×2 (05:42→17:10)
[2022-07-10] MEDS: Pantoprazole 40 MG VIAL IVP SCH ×2 (05:43→17:09)
[2022-07-10] MEDS: Insulin LISPRO 300 UNITS/3 ML VIAL SUBQ SCH ×3 (07:30→20:45)
[2022-07-10] MEDS: Chlorhexidine Rinse 15 ML MOUTHWASH MM SCH ×2 (09:00→20:06)
[2022-07-10] MEDS: Erythromycin OPTH Oint BOTH EYES SCH ×3 (10:00→20:06)
[2022-07-10] MEDS: *HR* Labetalol 20 MG/4 ML SYRINGE IVP SCH ×2 (10:30→20:05)
[2022-07-10] MEDS: LACTULOSE RC SCH (10:45)
[2022-07-10] MEDS: SODIUM CHLORIDE IRRIGATION RC SCH (10:45)
[2022-07-10] MEDS: Levothyroxine Sodium 100 MCG VIAL IVP SCH (11:16)
[2022-07-10] MEDS: Insulin DETEMIR 100 UNIT/ML X5UNITS SUBQ SCH (11:18)
[2022-07-10] MEDS: Thiamine (B-1) 100 MG in 0.9 % Sodium Chloride 50 ML IVPB SCH ×3 (12:00→20:06)
[2022-07-10 12:08] LABS: Basophils % 0.2 %; Hematocrit 30.7 % (35.3-44.9); Hemoglobin 8.7 g/dL (11.5-15.4); Mean Corpuscular HGB Conc 28.3 g/dL (31.6-35.5); Mean Corpuscular Hemoglobin 28.5 pg (28.0-33.3); Mean Corpuscular Volume 100.7 fL (83.0-100.0); Red Blood Count 3.05 M/mcL (3.82-4.97)
[2022-07-10 12:10] LABS: Eosinophils # 0.1 K/mcL (0.0-0.6); Eosinophils % 3.4 %; Immature Granulocytes % 0.2 % (0-4); Immature Platelets 5.1 % (1.1-6.1); Lymphocytes # 0.6 K/mcL (0.6-4.6); Lymphocytes % 13.4 %; Monocytes # 0.2 K/mcL (0.0-1.3); Monocytes % 5.1 %; Neutrophils # 3.2 K/mcL (1.6-8.9); Red Cell Distribution Width 19.2 % (11.5-14.5); Segmented Neutrophils % 77.7 %; White Blood Count 4.1 K/mcL (4.3-11.1)
[2022-07-10 12:20] LABS: Albumin 2.6 g/dL (3.5-5.7); Albumin/Globulin Ratio 0.7 (1.1-2.2); Bilirubin,Total 2.5 mg/dL (0.3-1.0); Calcium 9.6 mg/dL (8.6-10.3); Globulin 3.5 g/dL (2.4-3.5); Potassium 4.1 mEq/L (3.5-5.1); Total Protein 6.1 g/dL (6.4-8.9)
[2022-07-10 12:24] LABS: Platelet Count 57 K/mcL (140-400)
[2022-07-10 12:59] LABS: Anisocytosis 2+ (Not Present); Hypochromasia Present (Not Present)
[2022-07-10 13:00] LABS: Platelet Estimate Decreased (Normal)
[2022-07-10] MEDS: Clotrimazole 1% CRM 15 GM TUBE TP SCH ×2 (14:07→20:06)
[2022-07-10] MEDS ORDERED: Insulin LISPRO 300 UNITS/3 ML VIAL SUBQ SCH (18:00)
[2022-07-10] MEDS ORDERED: Insulin DETEMIR 100 UNIT/ML X5UNITS SUBQ SCH (21:00)
[2022-07-11] MEDS: Insulin LISPRO 300 UNITS/3 ML VIAL SUBQ SCH ×7 (00:05→23:39)
[2022-07-11] MEDS: Artificial Tears SOLN 15 ML BOTTLE BOTH EYES SCH ×7 (00:06→23:39)
[2022-07-11] MEDS: *HR* HYDROmorphone 2 MG/ML SYRINGE IVP PRN (00:12)
[2022-07-11] MEDS: Ipratropium/Albuterol Neb 3 ML IH SCH ×4 (04:21→22:13)
[2022-07-11] MEDS: *HR* LORazepam 2 MG/ML VIAL IVP PRN (04:34)
[2022-07-11 05:22] LABS: Albumin 2.5 g/dL (3.5-5.7); Albumin/Globulin Ratio 0.7 (1.1-2.2); Bilirubin,Total 2.1 mg/dL (0.3-1.0); Calcium 9.3 mg/dL (8.6-10.3); Globulin 3.6 g/dL (2.4-3.5); Total Protein 6.1 g/dL (6.4-8.9)
[2022-07-11] MEDS: Pantoprazole 40 MG VIAL IVP SCH ×2 (05:58→17:08)
[2022-07-11] MEDS: *HR* Heparin 5,000 UNIT/ML VIAL SQ SCH ×2 (06:51→17:01)
[2022-07-11] MEDS: Clotrimazole 1% CRM 15 GM TUBE TP SCH ×2 (08:58→20:57)
[2022-07-11] MEDS: SODIUM CHLORIDE IRRIGATION RC SCH (08:59)
[2022-07-11] MEDS: LACTULOSE RC SCH (08:59)
[2022-07-11] MEDS: *HR* Labetalol 20 MG/4 ML SYRINGE IVP SCH ×2 (09:00→20:54)
[2022-07-11] MEDS: Levothyroxine Sodium 100 MCG VIAL IVP SCH (09:00)
[2022-07-11] MEDS: Erythromycin OPTH Oint BOTH EYES SCH ×3 (09:01→20:56)
[2022-07-11] MEDS: Chlorhexidine Rinse 15 ML MOUTHWASH MM SCH ×2 (09:01→20:55)
[2022-07-11] MEDS: Insulin DETEMIR 100 UNIT/ML X5UNITS SUBQ SCH ×2 (09:07→20:55)
[2022-07-11] MEDS: Thiamine (B-1) 100 MG in 0.9 % Sodium Chloride 50 ML IVPB SCH ×3 (10:36→20:55)
[2022-07-12] MEDS: Ipratropium/Albuterol Neb 3 ML IH SCH ×4 (03:55→21:33)
[2022-07-12] MEDS: *HR* Heparin 5,000 UNIT/ML VIAL SQ SCH ×2 (05:16→16:44)
[2022-07-12] MEDS: Insulin LISPRO 300 UNITS/3 ML VIAL SUBQ SCH ×5 (05:21→20:33)
[2022-07-12] MEDS: Pantoprazole 40 MG VIAL IVP SCH ×2 (05:21→18:37)
[2022-07-12] MEDS: Artificial Tears SOLN 15 ML BOTTLE BOTH EYES SCH ×5 (05:22→20:32)
[2022-07-12] MEDS: Thiamine (B-1) 100 MG in 0.9 % Sodium Chloride 50 ML IVPB SCH ×3 (08:30→20:37)
[2022-07-12] MEDS: Chlorhexidine Rinse 15 ML MOUTHWASH MM SCH ×2 (08:30→20:32)
[2022-07-12] MEDS: *HR* Labetalol 20 MG/4 ML SYRINGE IVP SCH ×2 (08:30→20:32)
[2022-07-12] MEDS: SODIUM CHLORIDE IRRIGATION RC SCH (08:30)
[2022-07-12] MEDS: LACTULOSE RC SCH (08:30)
[2022-07-12] MEDS: Clotrimazole 1% CRM 15 GM TUBE TP SCH ×2 (08:30→20:32)
[2022-07-12] MEDS: Erythromycin OPTH Oint BOTH EYES SCH ×3 (08:30→20:32)
[2022-07-12] MEDS: Levothyroxine Sodium 100 MCG VIAL IVP SCH (08:30)
[2022-07-12] MEDS: Insulin DETEMIR 100 UNIT/ML X5UNITS SUBQ SCH ×2 (08:31→20:33)
[2022-07-12 09:23] LABS: Albumin 2.5 g/dL (3.5-5.7); Albumin/Globulin Ratio 0.7 (1.1-2.2); Bilirubin,Total 1.6 mg/dL (0.3-1.0); Calcium 9.5 mg/dL (8.6-10.3); Globulin 3.8 g/dL (2.4-3.5); Potassium 4.4 mEq/L (3.5-5.1); Total Protein 6.3 g/dL (6.4-8.9)
[2022-07-12 09:24] LABS: Basophils % 0.6 %; Eosinophils # 0.2 K/mcL (0.0-0.6); Eosinophils % 5.6 %; Hematocrit 30.5 % (35.3-44.9); Hemoglobin 9.1 g/dL (11.5-15.4); Immature Granulocytes % 9.4 % (0-4); Lymphocytes # 0.7 K/mcL (0.6-4.6); Lymphocytes % 22.5 %; Mean Corpuscular HGB Conc 29.8 g/dL (31.6-35.5); Mean Corpuscular Volume 97.1 fL (83.0-100.0); Mean Platelet Volume 12.7 fL (9.4-12.4); Monocytes # 0.2 K/mcL (0.0-1.3); Monocytes % 6.3 %; Neutrophils # 1.8 K/mcL (1.6-8.9); Platelet Count 54 K/mcL (140-400); Platelet Estimate Decreased (Normal); Red Blood Count 3.14 M/mcL (3.82-4.97); Red Cell Distribution Width 18.6 % (11.5-14.5); Segmented Neutrophils % 55.6 %; White Blood Count 3.2 K/mcL (4.3-11.1)
[2022-07-12] MEDS: *HR* HYDROmorphone 2 MG/ML SYRINGE IVP PRN ×2 (10:54→16:45)
[2022-07-12] MEDS ORDERED: Saliva Stimulant 44.3ml BOTTLE PO PRN (14:53)
[2022-07-12 15:29] LABS: Immature Reticulocyte % 20.9 % (11.0-38.0); Retculocyte # 0.07 M/mcL (0.05-0.10); Reticulocyte % 2.2 % (1.6-2.8)
[2022-07-12 15:50] LABS: % Iron Saturation 16 % (15-50); Iron 37 mcg/dL (50-170); Lactate Dehydrogenase 158 Units/L (140-271); Transferrin 164 mg/dL (203-362)
[2022-07-12 16:09] LABS: Ferritin 104 ng/mL (10-120)
[2022-07-12 16:15] LABS: Activated Partial Thrombo Time 23.8 Seconds (26.0-36.0); INR 1.5; Prothrombin Time 17.1 Seconds (9.4-12.1)
[2022-07-13] MEDS: Insulin LISPRO 300 UNITS/3 ML VIAL SUBQ SCH ×7 (00:57→23:26)
[2022-07-13] MEDS: Artificial Tears SOLN 15 ML BOTTLE BOTH EYES SCH ×7 (00:57→23:26)
[2022-07-13] MEDS: *HR* LORazepam 2 MG/ML VIAL IVP PRN ×2 (03:09→18:44)
[2022-07-13 03:41] LABS: Albumin 2.4 g/dL (3.5-5.7); Albumin/Globulin Ratio 0.6 (1.1-2.2); Bilirubin,Total 1.5 mg/dL (0.3-1.0); Calcium 9.5 mg/dL (8.6-10.3); Globulin 3.7 g/dL (2.4-3.5); Potassium 4.1 mEq/L (3.5-5.1); Total Protein 6.1 g/dL (6.4-8.9)
[2022-07-13] MEDS: Ipratropium/Albuterol Neb 3 ML IH SCH ×4 (04:39→23:06)
[2022-07-13] MEDS: Pantoprazole 40 MG VIAL IVP SCH ×2 (05:10→18:44)
[2022-07-13] MEDS: *HR* Heparin 5,000 UNIT/ML VIAL SQ SCH ×2 (05:12→18:45)
[2022-07-13] MEDS: Erythromycin OPTH Oint BOTH EYES SCH ×3 (09:15→20:31)
[2022-07-13] MEDS: Thiamine (B-1) 100 MG in 0.9 % Sodium Chloride 50 ML IVPB SCH ×3 (09:24→20:32)
[2022-07-13] MEDS: Insulin DETEMIR 100 UNIT/ML X5UNITS SUBQ SCH ×2 (09:25→20:30)
[2022-07-13] MEDS: Chlorhexidine Rinse 15 ML MOUTHWASH MM SCH ×2 (09:26→20:30)
[2022-07-13] MEDS: Levothyroxine Sodium 100 MCG VIAL IVP SCH (09:26)
[2022-07-13] MEDS: Clotrimazole 1% CRM 15 GM TUBE TP SCH ×2 (09:30→20:32)
[2022-07-13] MEDS: *HR* Labetalol 20 MG/4 ML SYRINGE IVP SCH ×2 (09:30→20:31)
[2022-07-13 10:57] LABS: Mean Corpuscular Volume 99.7 fL (83.0-100.0)
[2022-07-13 10:58] LABS: Basophils % 0.3 %; Eosinophils # 0.2 K/mcL (0.0-0.6); Eosinophils % 7.8 %; Hemoglobin 9.4 g/dL (11.5-15.4); Immature Platelets 5.9 % (1.1-6.1); Lymphocytes # 0.8 K/mcL (0.6-4.6); Lymphocytes % 24.3 %; Mean Corpuscular HGB Conc 29.4 g/dL (31.6-35.5); Mean Corpuscular Hemoglobin 29.3 pg (28.0-33.3); Mean Platelet Volume 12.6 fL (9.4-12.4); Monocytes # 0.2 K/mcL (0.0-1.3); Monocytes % 7.1 %; Neutrophils # 1.8 K/mcL (1.6-8.9); Red Blood Count 3.21 M/mcL (3.82-4.97); Red Cell Distribution Width 19.2 % (11.5-14.5); Segmented Neutrophils % 59.5 %; White Blood Count 3.1 K/mcL (4.3-11.1)
[2022-07-13 11:05] LABS: Platelet Count 63 K/mcL (140-400)
[2022-07-13 11:32] LABS: Hypochromasia Present (Not Present)
[2022-07-13 11:33] LABS: Acanthocytes 1+ (Not Present); Large Platelets Present (Not Present); Platelet Estimate Marked Decrease (Normal); Poikilocytosis 1+ (Not Present)
[2022-07-13] MEDS: LACTULOSE RC SCH (14:12)
[2022-07-13] MEDS: SODIUM CHLORIDE IRRIGATION RC SCH (14:12)
[2022-07-13] MEDS: *HR* HYDROmorphone 2 MG/ML SYRINGE IVP PRN ×2 (14:16→18:44)
[2022-07-13] MEDS: *HR* Labetalol 20 MG/4 ML SYRINGE IVP PRN (23:26)
[2022-07-14] MEDS: Ipratropium/Albuterol Neb 3 ML IH SCH ×4 (03:40→21:31)
[2022-07-14] MEDS: *HR* HYDROmorphone 2 MG/ML SYRINGE IVP PRN ×3 (05:10→17:12)
[2022-07-14] MEDS: Insulin LISPRO 300 UNITS/3 ML VIAL SUBQ SCH ×6 (05:11→23:57)
[2022-07-14] MEDS: Pantoprazole 40 MG VIAL IVP SCH ×2 (05:11→16:52)
[2022-07-14] MEDS: Artificial Tears SOLN 15 ML BOTTLE BOTH EYES SCH ×6 (05:11→23:51)
[2022-07-14] MEDS: *HR* Heparin 5,000 UNIT/ML VIAL SQ SCH ×2 (05:11→16:52)
[2022-07-14] MEDS: *HR* LORazepam 2 MG/ML VIAL IVP PRN ×2 (05:11→21:36)
[2022-07-14 06:13] LABS: Albumin 2.4 g/dL (3.5-5.7); Albumin/Globulin Ratio 0.6 (1.1-2.2); Bilirubin,Total 1.5 mg/dL (0.3-1.0); Calcium 9.3 mg/dL (8.6-10.3); Globulin 3.9 g/dL (2.4-3.5); Magnesium 2.9 mg/dL (1.6-2.6); Potassium 4.3 mEq/L (3.5-5.1); Total Protein 6.3 g/dL (6.4-8.9)
[2022-07-14] MEDS: *HR* Labetalol 20 MG/4 ML SYRINGE IVP SCH ×2 (09:17→21:36)
[2022-07-14] MEDS: Thiamine (B-1) 100 MG in 0.9 % Sodium Chloride 50 ML IVPB SCH ×3 (09:17→21:36)
[2022-07-14] MEDS: Insulin DETEMIR 100 UNIT/ML X5UNITS SUBQ SCH ×2 (09:17→21:36)
[2022-07-14] MEDS: Levothyroxine Sodium 100 MCG VIAL IVP SCH (09:18)
[2022-07-14] MEDS: Clotrimazole 1% CRM 15 GM TUBE TP SCH ×2 (09:18→21:37)
[2022-07-14] MEDS: Chlorhexidine Rinse 15 ML MOUTHWASH MM SCH ×2 (09:19→21:36)
[2022-07-14] MEDS: Erythromycin OPTH Oint BOTH EYES SCH (09:19)
[2022-07-14] MEDS: SODIUM CHLORIDE IRRIGATION RC SCH (09:20)
[2022-07-14] MEDS: LACTULOSE RC SCH (09:20)
[2022-07-14 17:39] LABS: Basophils % 0.4 %; Eosinophils # 0.1 K/mcL (0.0-0.6); Eosinophils % 4.5 %; Hematocrit 30.5 % (35.3-44.9); Hemoglobin 8.7 g/dL (11.5-15.4); Immature Granulocytes % 1.1 % (0-4); Lymphocytes # 0.8 K/mcL (0.6-4.6); Lymphocytes % 30.5 %; Mean Corpuscular HGB Conc 28.5 g/dL (31.6-35.5); Mean Corpuscular Volume 101.7 fL (83.0-100.0); Mean Platelet Volume 13.2 fL (9.4-12.4); Monocytes # 0.2 K/mcL (0.0-1.3); Monocytes % 7.1 %; Neutrophils # 1.5 K/mcL (1.6-8.9); Red Cell Distribution Width 19.6 % (11.5-14.5); Segmented Neutrophils % 56.4 %; White Blood Count 2.7 K/mcL (4.3-11.1)
[2022-07-14 17:40] LABS: Platelet Count 58 K/mcL (140-400)
[2022-07-14 17:42] LABS: Hypochromasia Present (Not Present); Platelet Estimate Decreased (Normal)
[2022-07-15] MEDS: *HR* HYDROmorphone 2 MG/ML SYRINGE IVP PRN ×3 (00:01→20:50)
[2022-07-15] MEDS: *HR* Labetalol 20 MG/4 ML SYRINGE IVP PRN (02:26)
[2022-07-15] MEDS: Artificial Tears SOLN 15 ML BOTTLE BOTH EYES SCH ×5 (04:05→20:17)
[2022-07-15] MEDS: Insulin LISPRO 300 UNITS/3 ML VIAL SUBQ SCH ×5 (04:05→20:17)
[2022-07-15] MEDS: Ipratropium/Albuterol Neb 3 ML IH SCH ×4 (04:24→21:26)
[2022-07-15 04:59] LABS: Basophils % 0.4 %; Immature Granulocytes % 0.8 % (0-4); Monocytes % 8.9 %
[2022-07-15 05:02] LABS: Eosinophils # 0.1 K/mcL (0.0-0.6); Eosinophils % 4.5 %; Hematocrit 30.3 % (35.3-44.9); Hemoglobin 8.5 g/dL (11.5-15.4); Immature Platelets 6.6 % (1.1-6.1); Lymphocytes # 0.8 K/mcL (0.6-4.6); Lymphocytes % 30.4 %; Mean Corpuscular HGB Conc 28.1 g/dL (31.6-35.5); Mean Corpuscular Hemoglobin 28.6 pg (28.0-33.3); Mean Platelet Volume 12.9 fL (9.4-12.4); Monocytes # 0.2 K/mcL (0.0-1.3); Neutrophils # 1.4 K/mcL (1.6-8.9); Red Blood Count 2.97 M/mcL (3.82-4.97); Red Cell Distribution Width 19.6 % (11.5-14.5); White Blood Count 2.5 K/mcL (4.3-11.1)
[2022-07-15 05:19] LABS: Albumin 2.4 g/dL (3.5-5.7); Albumin/Globulin Ratio 0.6 (1.1-2.2); Bilirubin,Total 1.5 mg/dL (0.3-1.0); Calcium 8.8 mg/dL (8.6-10.3); Globulin 3.8 g/dL (2.4-3.5); Magnesium 2.8 mg/dL (1.6-2.6); Potassium 4.2 mEq/L (3.5-5.1); Total Protein 6.2 g/dL (6.4-8.9)
[2022-07-15 05:34] LABS: Platelet Count 55 K/mcL (140-400)
[2022-07-15] MEDS: Pantoprazole 40 MG VIAL IVP SCH ×2 (06:09→17:31)
[2022-07-15] MEDS: *HR* Heparin 5,000 UNIT/ML VIAL SQ SCH ×2 (06:09→17:31)
[2022-07-15 09:59] LABS: ANA IgG by ELISA NONE DETECTED (None Detected)
[2022-07-15] MEDS: LACTULOSE RC SCH (10:00)
[2022-07-15] MEDS: SODIUM CHLORIDE IRRIGATION RC SCH (10:00)
[2022-07-15] MEDS: Levothyroxine Sodium 100 MCG VIAL IVP SCH (11:01)
[2022-07-15] MEDS: Chlorhexidine Rinse 15 ML MOUTHWASH MM SCH ×2 (11:02→20:16)
[2022-07-15] MEDS: *HR* Labetalol 20 MG/4 ML SYRINGE IVP SCH ×2 (11:02→20:16)
[2022-07-15] MEDS: Insulin DETEMIR 100 UNIT/ML X5UNITS SUBQ SCH ×2 (11:04→20:16)
[2022-07-15] MEDS: Clotrimazole 1% CRM 15 GM TUBE TP SCH ×2 (11:05→20:16)
[2022-07-15] MEDS: Thiamine (B-1) 100 MG in 0.9 % Sodium Chloride 50 ML IVPB SCH ×3 (13:23→20:16)
[2022-07-15] MEDS ORDERED: E-Z-HD (BARIUM SULF) SUSPENSION PO ONE (16:54)
[2022-07-15] MEDS ORDERED: E-Z-PAQUE (BARIUM SULF) SUSP 1 BOTTLE PO ONE (16:54)
[2022-07-15] MEDS: *HR* LORazepam 2 MG/ML VIAL IVP PRN (20:50)
[2022-07-16] MEDS: Insulin LISPRO 300 UNITS/3 ML VIAL SUBQ SCH ×6 (01:06→20:31)
[2022-07-16] MEDS: Artificial Tears SOLN 15 ML BOTTLE BOTH EYES SCH ×6 (01:07→20:32)
[2022-07-16 02:42] LABS: Alpha 2 Globulin (PEP) 0.75 g/dL (0.48-1.05); Beta Globulin (PEP) 0.98 g/dL (0.48-1.10)
[2022-07-16] MEDS: Erythromycin OPTH Oint BOTH EYES SCH (03:55)
[2022-07-16] MEDS: *HR* Labetalol 20 MG/4 ML SYRINGE IVP PRN (04:07)
[2022-07-16] MEDS: *HR* HYDROmorphone 2 MG/ML SYRINGE IVP PRN (04:08)
[2022-07-16] MEDS: Ipratropium/Albuterol Neb 3 ML IH SCH ×4 (04:44→22:45)
[2022-07-16 04:46] LABS: Basophils % 0.4 %; Eosinophils # 0.1 K/mcL (0.0-0.6); Eosinophils % 6.1 %; Immature Granulocytes % 0.9 % (0-4); Immature Platelets 7.5 % (1.1-6.1); Lymphocytes # 0.8 K/mcL (0.6-4.6); Lymphocytes % 34.3 %; Mean Corpuscular HGB Conc 28.6 g/dL (31.6-35.5); Mean Corpuscular Volume 101.4 fL (83.0-100.0); Mean Platelet Volume 12.9 fL (9.4-12.4); Monocytes # 0.2 K/mcL (0.0-1.3); Monocytes % 8.7 %; Neutrophils # 1.1 K/mcL (1.6-8.9); Red Blood Count 2.76 M/mcL (3.82-4.97); Red Cell Distribution Width 19.3 % (11.5-14.5); Segmented Neutrophils % 49.6 %; White Blood Count 2.3 K/mcL (4.3-11.1)
[2022-07-16 04:47] LABS: Platelet Count 58 K/mcL (140-400)
[2022-07-16 05:04] LABS: Albumin 2.2 g/dL (3.5-5.7); Albumin/Globulin Ratio 0.6 (1.1-2.2); Bilirubin,Total 1.4 mg/dL (0.3-1.0); Calcium 8.6 mg/dL (8.6-10.3); Globulin 3.5 g/dL (2.4-3.5); Magnesium 2.6 mg/dL (1.6-2.6); Potassium 4.2 mEq/L (3.5-5.1); Total Protein 5.7 g/dL (6.4-8.9)
[2022-07-16 05:15] LABS: IFE Reflexed NOT DONE
[2022-07-16] MEDS: *HR* Heparin 5,000 UNIT/ML VIAL SQ SCH ×2 (05:58→19:49)
[2022-07-16] MEDS: Pantoprazole 40 MG VIAL IVP SCH ×2 (05:58→19:49)
[2022-07-16] MEDS: Lactulose Oral Soln 20 GM/30 ML UDC GTUBE SCH ×3 (09:13→20:47)
[2022-07-16] MEDS: Levothyroxine Sodium 100 MCG VIAL IVP SCH (09:13)
[2022-07-16] MEDS: Chlorhexidine Rinse 15 ML MOUTHWASH MM SCH ×2 (09:13→20:40)
[2022-07-16] MEDS: Clotrimazole 1% CRM 15 GM TUBE TP SCH ×2 (09:15→20:36)
[2022-07-16] MEDS: Insulin DETEMIR 100 UNIT/ML X5UNITS SUBQ SCH ×2 (09:15→20:46)
[2022-07-16] MEDS: *HR* LORazepam 2 MG/ML VIAL IVP PRN (09:16)
[2022-07-16] MEDS: *HR* Labetalol 20 MG/4 ML SYRINGE IVP SCH ×2 (09:16→20:41)
[2022-07-16] MEDS: Thiamine (B-1) 100 MG in 0.9 % Sodium Chloride 50 ML IVPB SCH ×3 (09:17→20:46)
[2022-07-16] MEDS ORDERED: *HR* LORazepam Oral Conc 2 MG/ML SL PRN (14:46)
[2022-07-17] MEDS: Insulin LISPRO 300 UNITS/3 ML VIAL SUBQ SCH ×7 (00:17→23:58)
[2022-07-17] MEDS: Artificial Tears SOLN 15 ML BOTTLE BOTH EYES SCH ×6 (00:17→20:06)
[2022-07-17] MEDS: Ipratropium/Albuterol Neb 3 ML IH SCH ×4 (03:30→23:00)
[2022-07-17] MEDS: Pantoprazole 40 MG VIAL IVP SCH ×2 (06:04→18:06)
[2022-07-17] MEDS: *HR* Heparin 5,000 UNIT/ML VIAL SQ SCH ×2 (06:04→18:06)
[2022-07-17 07:20] LABS: Albumin 2.5 g/dL (3.5-5.7); Albumin/Globulin Ratio 0.6 (1.1-2.2); Bilirubin,Total 1.7 mg/dL (0.3-1.0); Calcium 9.3 mg/dL (8.6-10.3); Globulin 4.2 g/dL (2.4-3.5); Magnesium 2.9 mg/dL (1.6-2.6); Potassium 4.1 mEq/L (3.5-5.1); Total Protein 6.7 g/dL (6.4-8.9)
[2022-07-17 07:40] LABS: Immature Granulocytes % 1.4 % (0-4); Mean Corpuscular HGB Conc 29.2 g/dL (31.6-35.5); Monocytes % 8.7 %
[2022-07-17 07:42] LABS: Basophils % 0.3 %; Eosinophils # 0.1 K/mcL (0.0-0.6); Eosinophils % 4.8 %; Hematocrit 30.1 % (35.3-44.9); Hemoglobin 8.8 g/dL (11.5-15.4); Lymphocytes # 0.9 K/mcL (0.6-4.6); Lymphocytes % 29.8 %; Mean Corpuscular Hemoglobin 29.1 pg (28.0-33.3); Mean Corpuscular Volume 99.7 fL (83.0-100.0); Mean Platelet Volume 13.6 fL (9.4-12.4); Monocytes # 0.3 K/mcL (0.0-1.3); Neutrophils # 1.6 K/mcL (1.6-8.9); Red Blood Count 3.02 M/mcL (3.82-4.97); White Blood Count 2.9 K/mcL (4.3-11.1)
[2022-07-17 08:22] LABS: Platelet Count 67 K/mcL (140-400)
[2022-07-17 08:23] LABS: Platelet Estimate Decreased (Normal)
[2022-07-17] MEDS: Lactulose Oral Soln 20 GM/30 ML UDC GTUBE SCH ×3 (09:00→20:16)
[2022-07-17] MEDS: Chlorhexidine Rinse 15 ML MOUTHWASH MM SCH ×2 (09:00→20:21)
[2022-07-17] MEDS: Insulin DETEMIR 100 UNIT/ML X5UNITS SUBQ SCH ×2 (09:01→20:14)
[2022-07-17] MEDS: Levothyroxine Sodium 100 MCG VIAL IVP SCH (09:01)
[2022-07-17] MEDS: *HR* Labetalol 20 MG/4 ML SYRINGE IVP SCH ×2 (09:02→20:02)
[2022-07-17] MEDS: Clotrimazole 1% CRM 15 GM TUBE TP SCH ×2 (09:03→20:22)
[2022-07-17] MEDS: Thiamine (B-1) 100 MG in 0.9 % Sodium Chloride 50 ML IVPB SCH ×3 (09:05→20:51)
[2022-07-18 03:12] LABS: Basophils % 0.3 %; Eosinophils # 0.2 K/mcL (0.0-0.6); Eosinophils % 4.6 %; Hematocrit 29.4 % (35.3-44.9); Hemoglobin 8.6 g/dL (11.5-15.4); Immature Granulocytes % 1.2 % (0-4); Lymphocytes # 0.9 K/mcL (0.6-4.6); Lymphocytes % 27.2 %; Mean Corpuscular HGB Conc 29.3 g/dL (31.6-35.5); Mean Corpuscular Hemoglobin 29.3 pg (28.0-33.3); Mean Platelet Volume 12.8 fL (9.4-12.4); Monocytes # 0.3 K/mcL (0.0-1.3); Monocytes % 8.3 %; Neutrophils # 1.9 K/mcL (1.6-8.9); Platelet Count 67 K/mcL (140-400); Red Blood Count 2.94 M/mcL (3.82-4.97); Red Cell Distribution Width 19.1 % (11.5-14.5); Segmented Neutrophils % 58.4 %; White Blood Count 3.3 K/mcL (4.3-11.1)
[2022-07-18 03:33] LABS: Albumin 2.4 g/dL (3.5-5.7); Albumin/Globulin Ratio 0.6 (1.1-2.2); Bilirubin,Total 1.5 mg/dL (0.3-1.0); Calcium 9.2 mg/dL (8.6-10.3); Globulin 4.3 g/dL (2.4-3.5); Magnesium 2.7 mg/dL (1.6-2.6); Potassium 4.3 mEq/L (3.5-5.1); Total Protein 6.7 g/dL (6.4-8.9)
[2022-07-18] MEDS: Ipratropium/Albuterol Neb 3 ML IH SCH ×4 (04:20→22:58)
[2022-07-18] MEDS: Insulin LISPRO 300 UNITS/3 ML VIAL SUBQ SCH ×5 (04:44→20:58)
[2022-07-18] MEDS: Artificial Tears SOLN 15 ML BOTTLE BOTH EYES SCH ×7 (04:45→23:13)
[2022-07-18] MEDS: *HR* Heparin 5,000 UNIT/ML VIAL SQ SCH ×2 (06:10→16:02)
[2022-07-18] MEDS: Pantoprazole 40 MG VIAL IVP SCH ×2 (06:10→17:50)
[2022-07-18] MEDS: *HR* Labetalol 20 MG/4 ML SYRINGE IVP SCH ×2 (08:21→20:57)
[2022-07-18] MEDS: Lactulose Oral Soln 20 GM/30 ML UDC GTUBE SCH ×3 (08:21→20:59)
[2022-07-18] MEDS: Thiamine (B-1) 100 MG in 0.9 % Sodium Chloride 50 ML IVPB SCH ×3 (08:22→21:07)
[2022-07-18] MEDS: Levothyroxine Sodium 100 MCG VIAL IVP SCH (08:22)
[2022-07-18] MEDS: Chlorhexidine Rinse 15 ML MOUTHWASH MM SCH ×2 (08:23→20:57)
[2022-07-18] MEDS: Insulin DETEMIR 100 UNIT/ML X5UNITS SUBQ SCH ×2 (08:23→21:07)
[2022-07-18] MEDS: Clotrimazole 1% CRM 15 GM TUBE TP SCH ×2 (08:24→20:59)
[2022-07-18] MEDS: *HR* HYDROmorphone 2 MG/ML SYRINGE IVP PRN ×3 (11:33→22:16)
[2022-07-18 18:17] LABS: APTT (LE Anticoag) 35 sec (32-48); Diluted Russell Viper Venom 45 sec (33-44); LE Dil. Russell Viper Mix 1:1 42 sec (33-44); PT (LE-Anticoag) 17.7 sec (12.0-15.5)
[2022-07-18] MEDS: *HR* Labetalol 20 MG/4 ML SYRINGE IVP PRN (22:17)
[2022-07-19] MEDS: Insulin LISPRO 300 UNITS/3 ML VIAL SUBQ SCH ×7 (00:13→23:50)
[2022-07-19] MEDS: Artificial Tears SOLN 15 ML BOTTLE BOTH EYES SCH ×6 (04:05→22:49)
[2022-07-19] MEDS ORDERED: Acetaminophen IV 1,000 MG/100 ML BAG IVPB ONE (04:07)
[2022-07-19] MEDS: Ipratropium/Albuterol Neb 3 ML IH SCH ×4 (04:19→21:54)
[2022-07-19] MEDS: *HR* Heparin 5,000 UNIT/ML VIAL SQ SCH ×2 (04:21→18:18)
[2022-07-19] MEDS: *HR* Dextrose 50 % in Water (Syg) 50 ML SYRINGE IVP PRN ×2 (04:28→08:07)
[2022-07-19] MEDS: Pantoprazole 40 MG VIAL IVP SCH ×2 (05:12→18:18)
[2022-07-19] MEDS: Levothyroxine Sodium 100 MCG VIAL IVP SCH (08:11)
[2022-07-19] MEDS: Lactulose Oral Soln 20 GM/30 ML UDC GTUBE SCH (08:12)
[2022-07-19] MEDS: *HR* Labetalol 20 MG/4 ML SYRINGE IVP SCH ×2 (08:12→19:58)
[2022-07-19] MEDS: Insulin DETEMIR 100 UNIT/ML X5UNITS SUBQ SCH (08:13)
[2022-07-19] MEDS: Clotrimazole 1% CRM 15 GM TUBE TP SCH ×2 (08:13→19:59)
[2022-07-19] MEDS: Chlorhexidine Rinse 15 ML MOUTHWASH MM SCH ×2 (08:13→19:58)
[2022-07-19] MEDS: Thiamine (B-1) 100 MG in 0.9 % Sodium Chloride 50 ML IVPB SCH ×3 (08:22→19:58)
[2022-07-19] MEDS: *HR* HYDROmorphone 2 MG/ML SYRINGE IVP PRN (22:46)
[2022-07-20] MEDS: Ipratropium/Albuterol Neb 3 ML IH SCH ×2 (03:43→11:15)
[2022-07-20] MEDS: Insulin LISPRO 300 UNITS/3 ML VIAL SUBQ SCH ×3 (04:43→11:37)
[2022-07-20] MEDS: Artificial Tears SOLN 15 ML BOTTLE BOTH EYES SCH ×3 (04:44→11:37)
[2022-07-20] MEDS: *HR* Heparin 5,000 UNIT/ML VIAL SQ SCH (04:44)
[2022-07-20] MEDS: Pantoprazole 40 MG VIAL IVP SCH (05:35)
[2022-07-20] MEDS: *HR* Labetalol 20 MG/4 ML SYRINGE IVP SCH (08:48)
[2022-07-20] MEDS: Levothyroxine Sodium 100 MCG VIAL IVP SCH (08:48)
[2022-07-20] MEDS: Chlorhexidine Rinse 15 ML MOUTHWASH MM SCH (08:49)
[2022-07-20] MEDS: Clotrimazole 1% CRM 15 GM TUBE TP SCH (08:49)
[2022-07-20] MEDS: Thiamine (B-1) 100 MG in 0.9 % Sodium Chloride 50 ML IVPB SCH (08:49)
[2022-07-20] MEDS: *HR* HYDROmorphone 2 MG/ML SYRINGE IVP PRN (08:54)
[2022-07-20 11:36] VITALS: BP 180/53; PULSE 87; TEMP 98.3; O2SAT 92
== END 2022-07-20 15:37 | disposition hospice, home (50) | DRG 207 ==
LOC: 2NNU → SUATTDRO 23:57 → ICNU 06-23 06:34 → 2NNU 07-08 16:26
PROVIDERS: ADMIT Internal Medicine; ATTEND Family Medicine